=== PATIENT | female | born 1955 | race Caucasian/White ===

== ENCOUNTER → 2016-11-02 | Outpatient (CLI) | payer OTHER ==
--- NOTE | 2016-11-02 15:39 | BD ---
EXAMINATION TYPE: MG DEXA axial skeleton. DATE OF EXAM: 11/02/2016 2:09 PM CLINICAL HISTORY: Height: 62 inches Weight: 104 FRAX RISK QUESTIONS: Alcohol (3 or more units per day): no Family History (Parent hip fracture): unsure Glucocorticoids (More than 3mos): albuterol inhaler as needed over about 2 years (Ex: prednisone, prednisolone, methylprednisolone, dexamethasone, and hydrocortisone). History of Fracture in Adulthood: yes Secondary Osteoporosis: 1. Type 1 Diabetes: no 2. Hyperthyroidism: no 3. Menopause before 45: yes 4. Malnutrition: unsure; 5 pound weight loss over several months 5. Chronic liver disease: no Rheumatoid Arthritis: no Current Tobacco Use: yes RISK FACTORS HISTORY OF: History of Fractures: yes, both ankles( right ankle twice) & tailbone When: first broke right ankle about age 36, broke left about 4-5 years later (about age 41), second t jonathon broke right ankle( about age 49-50); tail bone fracture about 3-4 years ago (about age 54-55) Family History of Osteoporosis: unsure Drink Alcohol: very very rarely Active: yes Diet low in dairy products/other sources of calcium: somewhat Postmenopausal woman: yes Take estrogen and/or progesterone medications: no Lost more than 2 inches in height since high school: no Frequent falls: no Poor Health: "sometimes" Hyperparathyroidism: no Adrenal Insufficiency: no MEDICATIONS: Prednisone or other steroids: albuterol inhaler as needed as needed How Long: about 2 years Thyroid Medications: no Osteoporosis Medications: no Additional Medications: Vitamin D, Claritin, "stomach" pill Additional History: hysterectomy age 40 EXAM MEASUREMENTS: Bone mineral densitometry was performed using the [employer]val[employer] System. Bone mineral density as measured about the Lumbar spine is: ----- L1-L4(G/cm2): 0.610 T Score Values are as follows: ----- L2: -5.1 ----- L3: -4.6 ----- L4: -4.8 ----- L1-L4: -4.7 Bone mineral density BASELINE Bone mineral density about the R hip (g/cm2): 0.555 Bone mineral density about the L hip (g/cm2): 0.535 T Score values are as follows: -----R Neck: -3.5 -----L Neck: -3.6 -----R Intertrochanter: -4.1 -----L Intertrochanter: -4.1 Bone mineral density BASELINE IMPRESSION: Osteoporosis (T Score less than -2.5) as noted by T Score values at the Lumbar Spine & Bilateral Hi ps There is increased fracture risk and therapy is usually indicated based on age. Re-Screen 1-2 years. NOTE: T-SCORE=SD OF THE YOUNG ADULT MEAN.
== END | disposition home or self-care (01) ==
LOC: RADBDWWP 13:12
PROVIDERS: ATTEND Family Medicine
DX: M81.8 Other osteoporosis without current pathological fracture (principal)
CPT/HCPCS: 77080

== ENCOUNTER 2016-11-03 00:27 | Emergency (ER) | payer OTHER ==
[2016-11-03] MEDS ORDERED: ORPHENADRINE 30 MG/ML 2 ML VIAL IM STA (01:33)
[2016-11-03] MEDS ORDERED: KETOROLAC 30 MG/ML 1 ML VIAL IM STA (01:33)
--- NOTE | 2016-11-03 02:23 | ED ---
Back Pain HPI - General Chief Complaint: Back Pain/Injury Stated Complaint: Back/Flank Pain Time Seen by Provider: 11/03/16 01:14 Source: patient, RN notes reviewed, old records reviewed Limitations: no limitations - History of Present Illness Initial Comments: Patient is a 60 year old female with chief complaint of back muscle spasm. She states that she was cleaning her floors and noticed the pain became severe today. Pain worse with position, no history of trauma or fracture or surgery. She states she has taken motrin with no relief, patient states she has used flexeril before. Patient denies any dysuria, hematuria, saddle anesthesias or incontinence. Patient states the pain is mid thoracic back, radiatig to right side. - Related Data Home Medications Medication Instructions Recorded Confirmed Albuterol Inhaler [Ventolin Hfa 1 - 2 puff INHALATION RT-Q6H PRN 01/28/16 Inhaler] Ergocalciferol (Vitamin D2) 50,000 unit PO Q30D 03/16/16 07/21/16 [Drisdol] Triamcinolone 0.1% Cream [Kenalog] 1 applicatio TOPICAL QID PRN 03/16/16 Cetirizine HCl [Zyrtec] 10 mg PO DAILY PRN 06/09/16 07/21/16 Ketorolac [Toradol] 10 mg PO Q6HR PRN 07/21/16 07/21/16 Previous Rx's Medication Instructions Recorded Cyclobenzaprine [Flexeril] 10 mg PO TID PRN #10 tablet 06/04/16 Cyclobenzaprine [Flexeril] 10 mg PO TID #15 tab 11/03/16 traMADol HCl [Ultram] 50 mg PO Q4H PRN #12 tab 11/03/16 Allergies Allergy/AdvReac Type Severity Reaction Status Date / Time dimenhydrinate Allergy Rash/Hives Verified 11/03/16 00:36 [From Dramamine] latex Allergy Rash/Hives Verified 11/03/16 00:36 Penicillins Allergy Rash/Hives Verified 11/03/16 00:36 erythromycin base AdvReac HEADACHE Verified 11/03/16 00:36 [Erythromycin Base] ibuprofen [From Motrin] AdvReac Nausea & Verified 11/03/16 00:36 Vomiting SEAFOOD AdvReac Nausea & Uncoded 11/03/16 00:36 Vomiting & Diarrhea LORI AdvReac Nausea & Uncoded 11/03/16 00:36 Vomiting & Diarrhea Review of Systems ROS Statement: Those systems with pertinent positive or pertinent negative responses have been documented in the HPI. ROS Other: All systems not noted in ROS Statement are negative. Past Medical History Past Medical History: COPD, Hyperlipidemia, Osteoarthritis (OA) Additional Past Medical History / Comment(s): back pain, DDD History of Any Multi-Drug Resistant Organisms: None Reported Past Surgical History: Hernia Repair, Hysterectomy, Orthopedic Surgery Additional Past Surgical History / Comment(s): Rt. arthroscopic knee surgery Past Anesthesia/Blood Transfusion Reactions: No Reported Reaction Past Psychological History: Anxiety Smoking Status: Current every day smoker Past Alcohol Use History: None Reported Past Drug Use History: None Reported - Past Family History Mother Family Medical History: Myocardial Infarction ([place]) Father Family Medical History: Liver Disease, Pneumonia Sister(s) Family Medical History: Coronary Artery Disease (CAD), Diabetes Mellitus, Deep Vein Thrombosis (DVT), Hyperlipidemia, Hypertension General Exam - General Exam Comments Initial Comments: Pleasant 60 year old female no distress. Limitations: no limitations General appearance: alert, in no apparent distress Head exam: Present: atraumatic, normocephalic, normal inspection Eye exam: Present: normal appearance, PERRL, EOMI. Absent: scleral icterus, conjunctival injection, periorbital swelling ENT exam: Present: normal exam, mucous membranes moist Neck exam: Present: normal inspection. Absent: tenderness, meningismus, lymphadenopathy Respiratory exam: Present: normal lung sounds bilaterally. Absent: respiratory distress, wheezes, rales, rhonchi, stridor Cardiovascular Exam: Present: regular rate, normal rhythm, normal heart sounds. Absent: systolic murmur, diastolic murmur, rubs, gallop, clicks GI/Abdominal exam: Present: soft, normal bowel sounds. Absent: distended, tenderness, guarding, rebound, rigid Extremities exam: Present: normal inspection, full ROM, normal capillary refill. Absent: tenderness, pedal edema, joint swelling, calf tenderness Back exam: Present: normal inspection, muscle spasm (right thoracic muscle spasm. ). Absent: full ROM (limited due to pain. ) Neurological exam: Present: alert, oriented X3, CN II-XII intact Psychiatric exam: Present: normal affect, normal mood Skin exam: Present: warm, dry, intact, normal color. Absent: rash Course Vital Signs 11/03/16 11/03/16 00:34 03:00 Temperature 97.6 F 97.2 F L Pulse Rate 60 65 Respiratory 20 18 Rate Blood Pressure 101/57 113/80 O2 Sat by Pulse 99 97 Oximetry Medical Decision Making - Medical Decision Making Patient is a 60 year old female with chief complaint of back muscle spasm. She states that she was cleaning her floors and noticed the pain became severe today. Pain worse with position, no history of trauma or fracture or surgery. She states she has taken motrin with no relief, patient states she has used flexeril before. Patient denies any dysuria, hematuria, saddle anesthesias or incontinence. Patient states the pain is mid thoracic back, radiatig to right side. Evidence of right thoracic muscle spasm. Patient given IM toradol and norflex. Discharged with flexeril and ultram. Patient discussed xray findings of osteopenia. No fracture. Patient will follow up with PCP. REturn parameters discussed. - Radiology Data Radiology results: report reviewed Osteopenia, no fracture. Disposition Clinical Impression: Muscle spasm Disposition: HOME SELF-CARE Condition: Good Instructions: Acute Low Back Pain (ED), Muscle Spasm (ED) Additional Instructions: Rest, complete prescriptions. Apply heat and ice over the back. Follow-up with primary care provider. Prescriptions: Cyclobenzaprine [Flexeril] 10 mg PO TID #15 tab traMADol HCl [Ultram] 50 mg PO Q4H PRN #12 tab PRN Reason: Pain Referrals: Vahid Carr MD [Primary Care Provider] - 1-2 days Time of Disposition: 02:21
[2016-11-03] MEDS ORDERED: ONDANSETRON 4 MG ODT STARTER PACK 2 TAB BTL PO STA (02:30)
--- NOTE | 2016-11-03 02:41 | XR ---
EXAM: XR Thoracic Spine, 3 Views. CLINICAL HISTORY: Reason: Pain TECHNIQUE: Frontal, lateral and swimmer's views of the thoracic spine. COMPARISON: Chest x-ray 06/09/2016. FINDINGS: Vertebrae: No acute fracture or dislocation. Osteopenia. Disc spaces: Mild degenerative changes. Soft tissues: Unremarkable. Other findings: Minimal atelectatic changes. IMPRESSION: 1. No acute fracture or dislocation. 2. Osteopenia. 3. Mild degenerative changes.
[2016-11-03 03:01] VITALS: BP 113/80; PULSE 65; RESP 18; TEMP 97.2
== END 2016-11-03 03:01 | disposition home or self-care (01) ==
LOC: EC 00:27
DX: M62.830 Muscle spasm of back (principal); M85.80 Other specified disorders of bone density and structure, unspecified site; F17.200 Nicotine dependence, unspecified, uncomplicated; Z88.0 Allergy status to penicillin; Z91.040 Latex allergy status
CPT/HCPCS: 72070; 99283; 96372; J1885; S0119

== ENCOUNTER 2017-01-17 22:24 | Emergency (ER) | payer OTHER ==
[2017-01-17 22:49] VITALS: RESP 18
[2017-01-17] MEDS ORDERED: KETOROLAC 60 MG/2 ML VIAL IM STA (23:09)
--- NOTE | 2017-01-17 23:28 | ED ---
Lower Extremity Injury HPI - General Chief Complaint: Extremity Injury, Lower Stated Complaint: foot & shoulder pain Time Seen by Provider: 01/17/17 22:57 Source: patient, RN notes reviewed Mode of arrival: ambulatory Limitations: no limitations - History of Present Illness Initial Comments: This is a pleasant 61-year-old female presents emergency department complaining of pain to her left ankle. Patient states that she was carrying a daybed out onto a porch when her dog got tangled up with her leg. She states that she then stepped down and twisted her left foot. She is complaining of pain to the lateral aspect of the foot as well as the dorsum of the foot. She also has pain to the medial ankle. Patient is able to ambulate with antalgia and pain. Patient states that rest does alleviate the pain. She denies any numbness or tingling. No proximal pain. Patient denies any head or neck injury. Patient is complaining of some pain in the right scapular area. Patient states that she believes she twisted her grabbed something to stop falling and may have strained her right shoulder. However she does retain full range of motion to the right arm. Patient denies any chest pain or shortness of breath. No fever or chills. No head injury. No abdominal pain. No other orthopedic complaints. - Related Data Home Medications Medication Instructions Recorded Confirmed Albuterol Inhaler [Ventolin Hfa 1 - 2 puff INHALATION RT-Q6H PRN 01/28/16 Inhaler] Ergocalciferol (Vitamin D2) 50,000 unit PO Q30D 03/16/16 01/17/17 [Drisdol] Cetirizine HCl [Zyrtec] 10 mg PO DAILY PRN 06/09/16 01/17/17 Calcium Carbonate [Calcium] 600 mg PO BID 01/17/17 01/17/17 Cyclobenzaprine [Flexeril] 10 mg PO DAILY 01/17/17 01/17/17 Allergies Allergy/AdvReac Type Severity Reaction Status Date / Time dimenhydrinate Allergy Rash/Hives Verified 01/17/17 23:25 [From Dramamine] latex Allergy Rash/Hives Verified 01/17/17 23:25 Penicillins Allergy Rash/Hives Verified 01/17/17 23:25 shellfish derived [Shellfish] Allergy Anaphylaxis Verified 01/17/17 23:25 erythromycin base AdvReac Nausea & Verified 01/17/17 23:25 [Erythromycin Base] Vomiting ibuprofen [From Motrin] AdvReac Nausea & Verified 01/17/17 23:25 Vomiting ZUCCHINI AdvReac Nausea & Uncoded 01/17/17 22:47 Vomiting & Diarrhea Review of Systems ROS Statement: Those systems with pertinent positive or pertinent negative responses have been documented in the HPI. ROS Other: All systems not noted in ROS Statement are negative. Past Medical History Past Medical History: COPD, Hyperlipidemia, Osteoarthritis (OA) Additional Past Medical History / Comment(s): back pain, DDD History of Any Multi-Drug Resistant Organisms: None Reported Past Surgical History: Hernia Repair, Hysterectomy, Orthopedic Surgery Additional Past Surgical History / Comment(s): Rt. arthroscopic knee surgery Past Anesthesia/Blood Transfusion Reactions: No Reported Reaction Past Psychological History: Anxiety Smoking Status: Current every day smoker Past Alcohol Use History: None Reported Past Drug Use History: None Reported - Past Family History Mother Family Medical History: Myocardial Infarction ([place]) Father Family Medical History: Liver Disease, Pneumonia Sister(s) Family Medical History: Coronary Artery Disease (CAD), Diabetes Mellitus, Deep Vein Thrombosis (DVT), Hyperlipidemia, Hypertension General Exam - General Exam Comments Initial Comments: Thin but pearing 61-year-old female in no distress Limitations: no limitations General appearance: alert, in no apparent distress Head exam: Present: atraumatic, normocephalic, normal inspection Eye exam: Present: normal appearance, EOMI. Absent: scleral icterus, conjunctival injection, periorbital swelling ENT exam: Present: normal exam, normal oropharynx, mucous membranes moist Neck exam: Present: normal inspection, full ROM. Absent: tenderness, meningismus, lymphadenopathy Respiratory exam: Present: normal lung sounds bilaterally. Absent: respiratory distress, wheezes, rales, rhonchi, stridor Cardiovascular Exam: Present: regular rate, normal rhythm, normal heart sounds. Absent: systolic murmur, diastolic murmur, rubs, gallop, clicks GI/Abdominal exam: Present: soft, normal bowel sounds. Absent: distended, tenderness, guarding, rebound, rigid Extremities exam: Present: normal inspection, full ROM, normal capillary refill. Absent: tenderness, pedal edema, joint swelling, calf tenderness Left Knee exam: Present: normal inspection, full ROM. Absent: tenderness Lower Leg exam: Present: normal inspection. Absent: tenderness Ankle exam: Present: normal inspection, full ROM, tenderness. Absent: swelling , abrasion, laceration Foot/Toe exam: Present: normal inspection, full ROM, tenderness. Absent: swelling, abrasion (Patient has tenderness to the dorsum of the left foot as well as the area of the medial malleolus. There is mild tenderness to the area of the proximal fifth metatarsal. Capillary refill less than 2 seconds.) Neurovascular tendon exam: Present: no vascular compromise. Absent: pulse deficit, abnormal cap refill, motor deficit, sensory deficit, tendon deficit, extremity cold to touch, pallor Gait: antalgic Back exam: Present: normal inspection Neurological exam: Present: alert, oriented X3, CN II-XII intact Psychiatric exam: Present: normal affect, normal mood Skin exam: Present: warm, dry, intact, normal color. Absent: rash Course Vital Signs 01/17/17 22:44 Temperature 97.4 F L Pulse Rate 66 Respiratory 18 Rate Blood Pressure 105/64 O2 Sat by Pulse 98 Oximetry Medical Decision Making - Medical Decision Making Patient has a soft tissue injury to the right scapular region. This is likely muscle strain involving the upper back. Patient appears to have a sprain of the left foot and left deltoid ligament. Patient be placed in an Gaetano wrap. Patient will need to follow-up with her pain management physician at home for any further pain control. Conservative measures will be discussed. Return parameters discussed. - Radiology Data Radiology results: report reviewed, image reviewed Plain film x-rays of the right scapula, chest, left ankle and left foot are read as negative by radiology. I reviewed all the films myself. I concur. Disposition Clinical Impression: Muscle strain of right upper back, Sprain of foot, left, Left ankle sprain Disposition: HOME SELF-CARE Condition: Good Instructions: Ankle Sprain (ED), Thoracic Back Strain (ED) Additional Instructions: Use [id number] acetaminophen as directed on the bottle for pain control. Follow-up with your pain management physician tomorrow for any further pain control. Apply ice 20 minutes on and off to the affected areas.Return to the ER at once if the symptoms worsen or problems or difficulties arise. Referrals: Vahid Carr MD [Primary Care Provider] - 1-2 days Time of Disposition: 00:44
--- NOTE | 2017-01-18 00:17 | XR ---
EXAM: XR Right Shoulder Complete, 2 or More Views CLINICAL HISTORY: Pain TECHNIQUE: Two or more views of the right shoulder. COMPARISON: No relevant prior studies available. FINDINGS: Bones/joints: Unremarkable. No acute fracture. No dislocation. Soft tissues: Unremarkable. IMPRESSION: Normal right shoulder x-rays.
--- NOTE | 2017-01-18 00:18 | XR ---
EXAM: XR Left Ankle Complete, 3 or More Views CLINICAL HISTORY: Pain TECHNIQUE: Frontal, lateral and oblique views of the left ankle. COMPARISON: No relevant prior studies available. FINDINGS: Bones/joints: Unremarkable. No acute fracture. No dislocation. Soft tissues: Unremarkable. IMPRESSION: Normal left ankle x-rays.
--- NOTE | 2017-01-18 00:20 | XR ---
EXAM: XR Left Foot Complete, 3 or More Views CLINICAL HISTORY: Pain TECHNIQUE: Frontal, lateral and oblique views of the left foot. COMPARISON: No relevant prior studies available. FINDINGS: Bones/joints: Unremarkable. No acute fracture. No dislocation. Soft tissues: Unremarkable. No radiopaque foreign body. IMPRESSION: Normal left foot x-rays.
--- NOTE | 2017-01-18 00:48 | XR ---
EXAM: XR Chest, 1 View CLINICAL HISTORY: Reason: Pain TECHNIQUE: Frontal view of the chest. COMPARISON: Chest x-ray dated 06/02/2016 FINDINGS: Lungs: Hyperexpanded lungs suggesting COPD. Otherwise, the lungs are clear. Pleural space: Unremarkable. No pneumothorax. Heart: Mild prominence of the cardiomediastinal silhouette. Mediastinum: See above. Bones/joints: Unremarkable. IMPRESSION: Hyperexpanded lungs suggesting COPD. Otherwise, the lungs are clear.
[2017-01-18 01:12] VITALS: BP 111/67; PULSE 62; TEMP 98.1
== END 2017-01-18 01:22 | disposition home or self-care (01) ==
LOC: EC 22:24
DX: S93.402A Sprain of unspecified ligament of left ankle, initial encounter (principal); S93.602A Unspecified sprain of left foot, initial encounter; S46.911A Strain of unspecified muscle, fascia and tendon at shoulder and upper arm level, right arm, initial encounter; M19.90 Unspecified osteoarthritis, unspecified site; F17.200 Nicotine dependence, unspecified, uncomplicated; Z79.899 Other long term (current) drug therapy; Z91.040 Latex allergy status; Z88.0 Allergy status to penicillin; Z91.013 Allergy to seafood; Z88.1 Allergy status to other antibiotic agents; Z88.8 Allergy status to other drugs, medicaments and biological substances; Z88.6 Allergy status to analgesic agent; X50.1XXA Overexertion from prolonged static or awkward postures, initial encounter; Y93.89 Activity, other specified
CPT/HCPCS: 71010; 73010; 73610; 73630; 99283; 96372; J1885

== ENCOUNTER → 2017-05-13 | Outpatient (CLI) | payer OTHER ==
--- NOTE | 2017-05-13 17:28 | US ---
EXAMINATION TYPE: US kidneys/renal and bladder DATE OF EXAM: 05/13/2017 COMPARISON: NONE CLINICAL HISTORY: R31.9 hematuria. Pt states left flank pain, microscopic hematuria EXAM MEASUREMENTS: Right Kidney: 9.0 x 3.4 x 4.2 cm Left Kidney: 11.6 x 4.3 x 5.5 cm Right Kidney: wnl, lower pole gassed out Left Kidney: Hypoechoic nodule mid/lateral= 0.9 x 0.7 x 0.7 cm Bladder: wnl Bilateral Jets seen: Yes no evidence of hydronephrosis or nephrolithiasis. IMPRESSION: Hypoechoic nodule left kidney measuring less than a centimeter suggestive of a simple cyst.
== END | disposition home or self-care (01) ==
LOC: RADUSWWP 16:27
PROVIDERS: ATTEND Family Medicine
DX: N28.89 Other specified disorders of kidney and ureter (principal); R31.9 Hematuria, unspecified; Z88.0 Allergy status to penicillin; Z88.1 Allergy status to other antibiotic agents
CPT/HCPCS: 76770

== ENCOUNTER 2017-11-10 21:10 | Emergency (ER) | payer OTHER ==
[2017-11-10 21:18] VITALS: RESP 16
[2017-11-10] MEDS ORDERED: ONDANSETRON 4 MG/2 ML VIAL IVP STA (21:45)
[2017-11-10] MEDS ORDERED: DIPHENOX-ATROP 2.5-0.025 MG 1 EACH TAB PO STA (21:45)
[2017-11-10] MEDS ORDERED: SODIUM CHLORIDE 0.9% 1,000 ML IV STA (21:45)
[2017-11-10 22:15] LABS: Basophils % (A) 0 %; Eosinophils # (A) 0.1 k/uL (0-0.7); Eosinophils % (A) 2 %; HGB 14.5 gm/dL (11.4-16.0); Lymphocytes # (A) 0.9 k/uL (1.0-4.8); Lymphocytes % (A) 11 %; MCH 28.1 pg (25.0-35.0); MCHC 32.3 g/dL (31.0-37.0); MCV 87.1 fL (80.0-100.0); Mean Platelet Volume 8.1; Monocytes # (A) 0.3 k/uL (0-1.0); Monocytes % (A) 3 %; Neutrophils # (A) 6.5 k/uL (1.3-7.7); Neutrophils % (A) 83 %; Platelet Count 193 k/uL (150-450); RBC 5.16 m/uL (3.80-5.40); RDW 13.9 % (11.5-15.5); WBC 7.8 k/uL (3.8-10.6)
[2017-11-10 22:21] LABS: Appearance,Urine Cloudy (Clear); Bilirubin,Urine Negative (Negative); Blood,Urine Small (Negative); Color,Urine Yellow; Glucose,Urine (UA) Negative (Negative); Ketones,Urine 1+ (Negative); Leukocyte Esterase,Urine Negative (Negative); Mucus,Urine Moderate /hpf; Nitrite,Urine Negative (Negative); PH, Urine 5.5 (5.0-8.0); Protein,Urine Trace (Negative); RBC,Urine 6 /hpf (0-5); Specific Gravity,Urine 1.031 (1.001-1.035); Squamous Epithelial Cell,Urine 1 /hpf (0-4); WBC,Urine 2 /hpf (0-5)
[2017-11-10 22:22] LABS: Albumin 3.9 g/dL (3.5-5.0); Calcium 9.8 mg/dL (8.4-10.2); Potassium 4.1 mmol/L (3.5-5.1); Total Bilirubin 0.7 mg/dL (0.2-1.3); Total Protein 6.4 g/dL (6.3-8.2)
--- NOTE | 2017-11-10 22:55 | CT ---
EXAMINATION TYPE: CT abdomen pelvis wo con DATE OF EXAM: 11/10/2017 COMPARISON: NONE HISTORY: Left lower quadrant pain, nausea, vomiting and diarrhea. CT DLP: 211.5 mGycm Automated exposure control for dose reduction was used. TECHNIQUE: Helical acquisition of images was performed from the lung bases through the pelvis. FINDINGS: Lung bases are clear of consolidation. There is minimal subpleural reticular density consistent with mild fibrosis. There is no pleural effusion. There is no pericardial effusion. Bile ducts are not dilated. Spleen appears normal. There is no sign of a pancreatic mass. There are m ultiple densities in the gallbladder. There is probably a 1 cm cyst in the left lobe of the liver. Th ere is a similar smaller density in the right lobe of the liver. There is no evidence of an adrenal mass. Left kidney is slightly larger than the right. I see no hydr onephrosis. There is no retroperitoneal adenopathy. There is no sign of ascites. Appendix appears nor mal. Bladder distends smoothly. There is no evidence of a bowel obstruction. There are a few fluid-fi lled loops of small bowel in the pelvis. There are phleboliths in the pelvis. There is no sign of a h ernia. I see no pelvic mass. The lumbar spine is intact. I see no bony destructive process. IMPRESSION: MULTIPLE GALLSTONES. NO DILATED DUCTS. NO EVIDENCE OF RENAL STONE OR OBSTRUCTION. NORMAL APPENDIX. TH ERE ARE A FEW SMALL BOWEL FLUID-FILLED LOOPS IN THE PELVIS THAT MEASURE UP TO 2.5 CM. THIS COULD BE M INIMAL ILEUS. OTHERWISE NEGATIVE CT SCAN OF THE ABDOMEN AND PELVIS.
--- NOTE | 2017-11-10 23:08 | ED ---
Nausea/Vomiting/Diarrhea HPI - General Chief complaint: Nausea/Vomiting/Diarrhea Stated complaint: NVD Time Seen by Provider: 11/10/17 21:39 Source: patient, RN notes reviewed, old records reviewed Mode of arrival: ambulatory Limitations: no limitations - History of Present Illness Initial comments: 61-year-old female presents to complain of nausea vomiting diarrhea today. She reports the episode started at 4 AM. She states that she's her nausea subsided she's been no diarrhea. He plans left lower quadrant abdominal pain. Denies any dysuria or hematuria. - Related Data Home Medications Medication Instructions Recorded Confirmed Albuterol Inhaler [Ventolin Hfa 1 - 2 puff INHALATION RT-Q6H PRN 01/28/16 Inhaler] Ergocalciferol (Vitamin D2) 50,000 unit PO Q30D 03/16/16 11/10/17 [Drisdol] Calcium Carbonate [Calcium] 600 mg PO BID 01/17/17 11/10/17 Atorvastatin [Lipitor] 20 mg PO DAILY 11/10/17 11/10/17 Ketorolac [Toradol] 10 mg PO Q6H PRN 11/10/17 11/10/17 Loratadine [Claritin] 10 mg PO DAILY PRN 11/10/17 11/10/17 busPIRone HCl [Buspar] 5 mg PO TID PRN 11/10/17 11/10/17 Previous Rx's Medication Instructions Recorded Ondansetron Odt [Zofran Odt] 4 mg PO Q8HR PRN #12 tab 11/10/17 Allergies Allergy/AdvReac Type Severity Reaction Status Date / Time dimenhydrinate Allergy Rash/Hives Verified 11/10/17 21:18 [From Dramamine] latex Allergy Rash/Hives Verified 11/10/17 21:18 Penicillins Allergy Rash/Hives Verified 11/10/17 21:18 shellfish derived [Shellfish] Allergy Anaphylaxis Verified 11/10/17 21:18 erythromycin base AdvReac Nausea & Verified 11/10/17 21:18 [Erythromycin Base] Vomiting ibuprofen [From Motrin] AdvReac Nausea & Verified 11/10/17 21:18 Vomiting ZUCCHINI AdvReac Nausea & Uncoded 11/10/17 21:18 Vomiting & Diarrhea Review of Systems ROS Statement: Those systems with pertinent positive or pertinent negative responses have been documented in the HPI. ROS Other: All systems not noted in ROS Statement are negative. Past Medical History Past Medical History: COPD, Hyperlipidemia, Osteoarthritis (OA) Additional Past Medical History / Comment(s): back pain, DDD History of Any Multi-Drug Resistant Organisms: None Reported Past Surgical History: Hernia Repair, Hysterectomy, Orthopedic Surgery Additional Past Surgical History / Comment(s): Rt. arthroscopic knee surgery Past Anesthesia/Blood Transfusion Reactions: No Reported Reaction Past Psychological History: No Psychological Hx Reported Smoking Status: Current every day smoker Past Alcohol Use History: None Reported Past Drug Use History: None Reported - Past Family History Mother Family Medical History: Myocardial Infarction ([place]) Father Family Medical History: Liver Disease, Pneumonia Sister(s) Family Medical History: Coronary Artery Disease (CAD), Diabetes Mellitus, Deep Vein Thrombosis (DVT), Hyperlipidemia, Hypertension General Exam - General Exam Comments Initial Comments: Well-appearing 7-year-old female. No distress. Limitations: no limitations General appearance: alert, in no apparent distress Head exam: Present: atraumatic, normocephalic, normal inspection Eye exam: Present: normal appearance, PERRL, EOMI. Absent: scleral icterus, conjunctival injection, periorbital swelling ENT exam: Present: normal exam, mucous membranes moist Neck exam: Present: normal inspection. Absent: tenderness, meningismus, lymphadenopathy Respiratory exam: Present: normal lung sounds bilaterally. Absent: respiratory distress, wheezes, rales, rhonchi, stridor Cardiovascular Exam: Present: regular rate, normal rhythm, normal heart sounds. Absent: systolic murmur, diastolic murmur, rubs, gallop, clicks GI/Abdominal exam: Present: soft, tenderness (Minimal suprapubic and LLQ tenderness. ), normal bowel sounds. Absent: distended, guarding, rebound, rigid Extremities exam: Present: normal inspection, full ROM, normal capillary refill. Absent: tenderness, pedal edema, joint swelling, calf tenderness Back exam: Present: normal inspection Neurological exam: Present: alert, oriented X3, CN II-XII intact Psychiatric exam: Present: normal affect, normal mood Skin exam: Present: warm, dry, intact, normal color. Absent: rash Course Vital Signs 11/10/17 11/10/17 21:16 23:39 Temperature 97.3 F L 97.8 F Pulse Rate 83 81 Respiratory 16 16 Rate Blood Pressure 102/63 115/78 O2 Sat by Pulse 98 98 Oximetry Medical Decision Making - Medical Decision Making 61-year-old female presents with 1 day of diarrhea and vomiting. She also relates some left lower quadrant abdominal pain. Patient labwork was reviewed and normal. CT of the pelvis was performed without contrast. Multiple gallstones. Her liver enzymes are normal. Normal white count. No signs of diverticulitis.Patient's labwork was reviewed and was normal. Urine does show some small amount of red blood cells. CT shows no evidence of renal stones. Disucssed at this time treating for diarrhea and nausea, for gastroenteritis. Discussed follow up with PCP and return parameters discussed. Discussed also following up for persistent hematuria with PCP. All questions answered. Patient agrees to treatment plan and will comply. - Lab Data Result diagrams: 11/10/17 21:55 11/10/17 21:55 Lab Results 11/10/17 11/10/17 11/10/17 Range/Units 21:55 21:55 21:55 WBC 7.8 (3.8-10.6) k/uL RBC 5.16 (3.80-5.40) m/uL Hgb 14.5 (11.4-16.0) gm/dL Hct 45.0 (34.0-46.0) % MCV 87.1 (80.0-100.0) fL MCH 28.1 (25.0-35.0) pg MCHC 32.3 (31.0-37.0) g/dL RDW 13.9 (11.5-15.5) % Plt Count 193 (150-450) k/uL Neutrophils % 83 % Lymphocytes % 11 % Monocytes % 3 % Eosinophils % 2 % Basophils % 0 % Neutrophils # 6.5 (1.3-7.7) k/uL Lymphocytes # 0.9 L (1.0-4.8) k/uL Monocytes # 0.3 (0-1.0) k/uL Eosinophils # 0.1 (0-0.7) k/uL Basophils # 0.0 (0-0.2) k/uL Sodium 137 (137-145) mmol/L Potassium 4.1 (3.5-5.1) mmol/L Chloride 103 (98-107) mmol/L Carbon Dioxide 23 (22-30) mmol/L Anion Gap 11 mmol/L BUN 20 H (7-17) mg/dL Creatinine 0.90 (0.52-1.04) mg/dL Est GFR (CKD-EPI)AfAm 81 (>60 ml/min/1.73 sqM) Est GFR (CKD-EPI)NonAf 70 (>60 ml/min/1.73 sqM) Glucose 93 (74-99) mg/dL Calcium 9.8 (8.4-10.2) mg/dL Total Bilirubin 0.7 (0.2-1.3) mg/dL AST 15 (14-36) U/L ALT 23 (9-52) U/L Alkaline Phosphatase 82 (38-126) U/L Total Protein 6.4 (6.3-8.2) g/dL Albumin 3.9 (3.5-5.0) g/dL Amylase 47 (30-110) U/L Lipase 130 (23-300) U/L Urine Color Yellow Urine Appearance Cloudy H (Clear) Urine pH 5.5 (5.0-8.0) Ur Specific [place] 1.031 (1.001-1.035) Urine Protein Trace H (Negative) Urine Glucose (UA) Negative (Negative) Urine Ketones 1+ H (Negative) Urine Blood Small H (Negative) Urine Nitrite Negative (Negative) Urine Bilirubin Negative (Negative) Urine Urobilinogen 2.0 (<2.0) mg/dL Ur Leukocyte Esterase Negative (Negative) Urine RBC 6 H (0-5) /hpf Urine WBC 2 (0-5) /hpf Ur Squamous Epith Cells 1 (0-4) /hpf Urine Mucus Moderate H (None) /hpf - Radiology Data Radiology results: report reviewed Multiple gallstones. No dilated ducts. No evidence of renal stone or obstruction. Normal appendix. There are few small bowel fluid-filled loops in the pelvis is measures 2.5 cm. Could be minimal ileus. Otherwise negative CT abdomen and pelvis. Disposition Clinical Impression: Nausea, Diarrhea Disposition: HOME SELF-CARE Condition: Good Instructions: Acute Nausea and Vomiting (ED), Acute Diarrhea (ED) Additional Instructions: Patient advised to follow-up with primary care provider. Clear liquid diet for the next 2 days. Return to emergency department if any alarming signs or symptoms occur. Prescriptions: Ondansetron Odt [Zofran Odt] 4 mg PO Q8HR PRN #12 tab PRN Reason: Nausea Referrals: Vahid Carr MD [Primary Care Provider] - 1-2 days Time of Disposition: 23:08
[2017-11-10] MEDS ORDERED: DIPHENOX-ATROP STARTER PACK 8 TAB BTL PO STA (23:09)
[2017-11-10 23:40] VITALS: BP 115/78; PULSE 81; TEMP 97.8
== END 2017-11-10 23:39 | disposition home or self-care (01) ==
LOC: EC 21:10
DX: R11.2 Nausea with vomiting, unspecified (principal); R19.7 Diarrhea, unspecified; R10.32 Left lower quadrant pain; E78.5 Hyperlipidemia, unspecified; F17.200 Nicotine dependence, unspecified, uncomplicated; Z90.710 Acquired absence of both cervix and uterus; Z79.899 Other long term (current) drug therapy; Z88.8 Allergy status to other drugs, medicaments and biological substances; Z91.040 Latex allergy status; Z88.0 Allergy status to penicillin; Z91.030 Bee allergy status; Z88.1 Allergy status to other antibiotic agents; Z88.6 Allergy status to analgesic agent; Z91.018 Allergy to other foods
CPT/HCPCS: 36415; 80053; 82150; 83690; 85025; 81001; 74176; 99284; 96374; 96361; J2405

== ENCOUNTER → 2018-05-02 | Outpatient (CLI) | payer OTHER ==
--- NOTE | 2018-05-02 10:52 | P.STRESS ---
- Stress Test Note Stress Test Results/Findings: Exam Performed: stress echo exercise Exam Date: 05/02/18 Reason for Exam: cp Height: 5 ft 3 in Weight: 47.627 kg Protocol: gene Stage: 3 Duration of Exercise: 9 min Resting Heart Rate: 65 Resting Blood Pressure: 111/78 Maximum Achieved Heart Rate: 151 Maximum Achieved Blood Pressure: 213/82 85% PMHR: 135 100% PMHR: 151 METS: 10.5 Technologist Comment: Stress Test Results/Findings: This is a 62-year-old female with history of smoking and hypercholesterolemia being evaluated for symptoms of chest pain, shortness of breath and palpitations. Stress data: Baseline EKG showed sinus rhythm with normal HI interval constipation. Blood pressure at rest is 111/78 with pulse rate of 65. Patient walked on the Gene protocol for about 9 minutes achieving a maximal heart rate of 151 with a blood pressure of 213/82. EKGs taken during and after exercise showed mild nonspecific ST-T abnormalities in inferolateral leads which are not diagnostic for ischemia. Occasional PVCs were noted. Echo data: Baseline echo images show normal wall motion and thickening. Exercise echo images showed augmentation of the wall motion and thickening in all segments. Final impression: #1. Negative stress test #2. Negative stress echo
--- NOTE | 2018-05-03 12:29 | ECHOS ---
Exam Performed: stress echo exercise Exam Date: 05/02/18 Reason for Exam: cp Height: 5 ft 3 in Weight: 47.627 kg Protocol: gene Stage: 3 Duration of Exercise: 9 min Resting Heart Rate: 65 Resting Blood Pressure: 111/78 Maximum Achieved Heart Rate: 151 Maximum Achieved Blood Pressure: 213/82 85% PMHR: 135 100% PMHR: 151 METS: 10.5 Technologist Comment: Stress Test Results/Findings: This is a 62-year-old female with history of smoking and hypercholesterolemia being evaluated for symptoms of chest pain, shortness of breath and palpitations. Stress data: Baseline EKG showed sinus rhythm with normal MA interval constipation. Blood pressure at rest is 111/78 with pulse rate of 65. Patient walked on the Gene protocol for about 9 minutes achieving a maximal heart rate of 151 with a blood pressure of 213/82. EKGs taken during and after exercise showed mild nonspecific ST-T abnormalities in inferolateral leads which are not diagnostic for ischemia. Occasional PVCs were noted. Echo data: Baseline echo images show normal wall motion and thickening. Exercise echo images showed augmentation of the wall motion and thickening in all segments. Final impression: #1. Negative stress test #2. Negative stress echo MTDD
== END | disposition home or self-care (01) ==
LOC: RADNMMAIN 09:20
PROVIDERS: ATTEND Family Medicine
DX: R07.9 Chest pain, unspecified (principal); Z88.0 Allergy status to penicillin; Z88.1 Allergy status to other antibiotic agents; Z88.8 Allergy status to other drugs, medicaments and biological substances
CPT/HCPCS: 93351

== ENCOUNTER 2019-03-27 01:16 | Emergency (ER) | payer OTHER ==
[2019-03-27 01:28] VITALS: BP 116/80; PULSE 63; RESP 18; TEMP 98
[2019-03-27] MEDS ORDERED: ACETAMINOPHEN TAB 500 MG TAB PO STA (02:02)
--- NOTE | 2019-03-27 03:15 | US ---
EXAM: US Duplex Left Lower Extremity Veins CLINICAL HISTORY: ITS.REASON US Reason: Pain TECHNIQUE: Real-time duplex ultrasound scan of the left lower extremity veins integrating B-mode two-dimensional vascular structure, Doppler spectral analysis, color flow Doppler imaging and compression. COMPARISON: No relevant prior studies available. FINDINGS: Deep veins: No DVT in the visualized common femoral, femoral, proximal deep femoral or popliteal veins. The veins demonstrate normal color flow, are normally compressible, with normal phasic flow and/or augmentation response. Superficial veins: No thrombus in the visualized great saphenous vein. Soft tissues: No popliteal cyst. IMPRESSION: No DVT.
--- NOTE | 2019-03-27 03:23 | ED ---
General Adult HPI - General Chief complaint: Extremity Injury, Lower Stated complaint: L Leg Pain Time Seen by Provider: 03/27/19 01:31 Source: patient Mode of arrival: wheelchair Limitations: no limitations - History of Present Illness Initial comments: 63-year-old female patient presented to the emergency department today for evaluation of left calf pain. Patient states the pain started today after she left her legs crossed for a long period. Patient states that she took Tylenol which did improve her pain for a short time but it did return. She denies any swelling to the leg. Denies any previous injury to the leg. She denies any recent travel or use of oral hormonal medications. Patient denies any headache, neck pain, back pain, chest pain, shortness of breath, dizziness, weakness, abdominal pain, nausea, vomiting, or difficulties with bowel movements or urination. - Related Data Home Medications Medication Instructions Recorded Confirmed Albuterol Inhaler [Ventolin Hfa 1 - 2 puff INHALATION RT-Q6H PRN 01/28/16 11/10/17 Inhaler] Ergocalciferol (Vitamin D2) 50,000 unit PO Q30D 03/16/16 11/10/17 [Drisdol] Calcium Carbonate [Calcium] 600 mg PO BID 01/17/17 11/10/17 Atorvastatin [Lipitor] 20 mg PO DAILY 11/10/17 11/10/17 Ketorolac [Toradol] 10 mg PO Q6H PRN 11/10/17 11/10/17 Loratadine [Claritin] 10 mg PO DAILY PRN 11/10/17 11/10/17 busPIRone HCl [Buspar] 5 mg PO TID PRN 11/10/17 11/10/17 Previous Rx's Medication Instructions Recorded Ondansetron Odt [Zofran Odt] 4 mg PO Q8HR PRN #12 tab 11/10/17 Allergies Allergy/AdvReac Type Severity Reaction Status Date / Time dimenhydrinate Allergy Rash/Hives Verified 03/27/19 01:28 [From Dramamine] latex Allergy Rash/Hives Verified 03/27/19 01:28 Penicillins Allergy Rash/Hives Verified 03/27/19 01:28 shellfish derived [Shellfish] Allergy Anaphylaxis Verified 03/27/19 01:28 erythromycin base AdvReac Nausea & Verified 03/27/19 01:28 [Erythromycin Base] Vomiting ibuprofen [From Motrin] AdvReac Nausea & Verified 03/27/19 01:28 Vomiting ZUCCHINI AdvReac Nausea & Uncoded 03/27/19 01:28 Vomiting & Diarrhea Review of Systems ROS Statement: Those systems with pertinent positive or pertinent negative responses have been documented in the HPI. ROS Other: All systems not noted in ROS Statement are negative. Past Medical History Past Medical History: COPD, Hyperlipidemia, Osteoarthritis (OA) Additional Past Medical History / Comment(s): back pain, DDD History of Any Multi-Drug Resistant Organisms: None Reported Past Surgical History: Hernia Repair, Hysterectomy, Orthopedic Surgery Additional Past Surgical History / Comment(s): Rt. arthroscopic knee surgery, Past Anesthesia/Blood Transfusion Reactions: No Reported Reaction Past Psychological History: No Psychological Hx Reported Smoking Status: Current every day smoker Past Alcohol Use History: None Reported Past Drug Use History: None Reported - Past Family History Mother Family Medical History: Myocardial Infarction ([place]) Father Family Medical History: Liver Disease, Pneumonia Sister(s) Family Medical History: Coronary Artery Disease (CAD), Diabetes Mellitus, Deep Vein Thrombosis (DVT), Hyperlipidemia, Hypertension General Exam Limitations: no limitations General appearance: alert, in no apparent distress, other (Physical well- developed, well-nourished adult female patient in no acute distress. Vital signs upon presentation shows temperature 98.0F, pulse 63, respirations 18, respirations 18, blood pressure 116/80, pulse ox 98% on room air.) Eye exam: Present: normal appearance, PERRL, EOMI. Absent: scleral icterus, conjunctival injection, periorbital swelling ENT exam: Present: normal exam, normal oropharynx, mucous membranes moist Respiratory exam: Present: normal lung sounds bilaterally. Absent: respiratory distress, wheezes, rales, rhonchi, stridor Cardiovascular Exam: Present: regular rate, normal rhythm, normal heart sounds. Absent: systolic murmur, diastolic murmur, rubs, gallop, clicks GI/Abdominal exam: Present: soft, normal bowel sounds. Absent: distended, tenderness, guarding, rebound, rigid Extremities exam: Present: normal inspection, full ROM, normal capillary refill, calf tenderness (Left calf), other (Skin to the left leg is pink, warm, dry. Cap refills less than 3 seconds. Pedal and posttibial pulses are 2+ and equal bilaterally. No swelling.). Absent: pedal edema, joint swelling Neurological exam: Present: alert, oriented X3, CN II-XII intact Psychiatric exam: Present: normal affect, normal mood Skin exam: Present: warm, dry, intact, normal color. Absent: rash Course Vital Signs 03/27/19 01:25 Temperature 98.0 F Pulse Rate 63 Respiratory 18 Rate Blood Pressure 116/80 O2 Sat by Pulse 98 Oximetry Medical Decision Making - Medical Decision Making 63-year-old female patient presented to the emergency department today for evaluation of left calf pain. Physical examination is unremarkable. There is some tenderness noted to the left calf. No swelling. Neurovascular status is intact. Venous Doppler duplex of the left lower extremity was obtained and showed no evidence for DVT. Patient be discharged home with this and follow up with her primary care physician for recheck in 1-2 days. Return parameters were discussed in detail. She verbalizes understanding and agrees with this plan - Radiology Data Radiology results: report reviewed Venous upper duplex of the left lower extremities was obtained. No evidence for DVT. Disposition Clinical Impression: Left leg pain Disposition: HOME SELF-CARE Condition: Good Instructions (If sedation given, give patient instructions): Leg Pain (ED) Additional Instructions: Take Tylenol for pain control. Apply ice to the painful area. Follow-up with your primary care physician for recheck in 1-2 days. Return to the emergency department immediately for any new, worsening, or concerning symptoms. Is patient prescribed a controlled substance at d/c from ED?: No Referrals: Vahid Carr MD [Primary Care Provider] - 1-2 days Time of Disposition: 03:22
== END 2019-03-27 03:36 | disposition home or self-care (01) ==
LOC: EC 01:16
DX: M79.605 Pain in left leg (principal); M79.662 Pain in left lower leg; J44.9 Chronic obstructive pulmonary disease, unspecified; E78.5 Hyperlipidemia, unspecified; M19.90 Unspecified osteoarthritis, unspecified site; F17.200 Nicotine dependence, unspecified, uncomplicated; Z88.0 Allergy status to penicillin; Z88.1 Allergy status to other antibiotic agents; Z88.6 Allergy status to analgesic agent; Z88.8 Allergy status to other drugs, medicaments and biological substances; Z91.013 Allergy to seafood; Z91.018 Allergy to other foods; Z91.040 Latex allergy status; Z79.1 Long term (current) use of non-steroidal anti-inflammatories (NSAID); Z79.899 Other long term (current) drug therapy
CPT/HCPCS: 99284

== ENCOUNTER 2019-08-25 01:25 | Emergency (ER) | payer OTHER ==
[2019-08-25] MEDS ORDERED: KETOROLAC 60 MG/2 ML VIAL IM STA (01:49)
--- NOTE | 2019-08-25 01:52 | ED ---
Chest Pain HPI - General Chief Complaint: Chest Pain Stated Complaint: Rib pain Time Seen by Provider: 08/25/19 01:38 Source: patient Mode of arrival: ambulatory Limitations: no limitations - History of Present Illness Initial Comments: This is a 63-year-old female here with right-sided chest pain right-sided chest and rib pain. Patient admits to hearing a pop while reaching over and help her kids with some stuff on the floor. Them began to have right-sided pain in her rib cage underneath her breast radiating around her right side of her chest. No shortness of breath. No recent fever or cough or congestion. Symptoms began acutely tonight no modifying factors no Motrin or Tylenol for pain. MD Complaint: chest pain (Right-sided rib pain) -: hour(s) Onset: other (After moving, felt a pop) Pain Location: right chest Pain Radiation: back Severity: moderate Severity scale (1-10): 4 Quality: sharp Consistency: intermittent Improves With: nothing Worsens With: inspiration, palpation, movement Context: trauma/injury Other Symptoms: cough (History of COPD) Treatments Prior to Arrival: none - Related Data Home Medications Medication Instructions Recorded Confirmed Albuterol Inhaler [Ventolin Hfa 1 - 2 puff INHALATION RT-Q6H PRN 01/28/16 11/10/17 Inhaler] Ergocalciferol (Vitamin D2) 50,000 unit PO Q30D 03/16/16 11/10/17 [Drisdol] Calcium Carbonate [Calcium] 600 mg PO BID 01/17/17 11/10/17 Atorvastatin [Lipitor] 20 mg PO DAILY 11/10/17 11/10/17 Ketorolac [Toradol] 10 mg PO Q6H PRN 11/10/17 11/10/17 Loratadine [Claritin] 10 mg PO DAILY PRN 11/10/17 11/10/17 busPIRone HCl [Buspar] 5 mg PO TID PRN 11/10/17 11/10/17 Previous Rx's Medication Instructions Recorded Ondansetron Odt [Zofran Odt] 4 mg PO Q8HR PRN #12 tab 11/10/17 Allergies Allergy/AdvReac Type Severity Reaction Status Date / Time dimenhydrinate Allergy Rash/Hives Verified 08/25/19 01:36 [From Dramamine] latex Allergy Rash/Hives Verified 08/25/19 01:36 Penicillins Allergy Rash/Hives Verified 08/25/19 01:36 shellfish derived [Shellfish] Allergy Anaphylaxis Verified 08/25/19 01:36 erythromycin base AdvReac Nausea & Verified 08/25/19 01:36 [Erythromycin Base] Vomiting ibuprofen [From Motrin] AdvReac Nausea & Verified 08/25/19 01:36 Vomiting ZUCCHINI AdvReac Nausea & Uncoded 08/25/19 01:36 Vomiting & Diarrhea Review of Systems ROS Statement: Those systems with pertinent positive or pertinent negative responses have been documented in the HPI. ROS Other: All systems not noted in ROS Statement are negative. Past Medical History Past Medical History: COPD, Hyperlipidemia, Osteoarthritis (OA) Additional Past Medical History / Comment(s): back pain, DDD History of Any Multi-Drug Resistant Organisms: None Reported Past Surgical History: Hernia Repair, Hysterectomy, Orthopedic Surgery Additional Past Surgical History / Comment(s): Rt. arthroscopic knee surgery, Past Anesthesia/Blood Transfusion Reactions: No Reported Reaction Past Psychological History: No Psychological Hx Reported Smoking Status: Current every day smoker Past Alcohol Use History: None Reported Past Drug Use History: None Reported - Past Family History Mother Family Medical History: Myocardial Infarction ([place]) Father Family Medical History: Liver Disease, Pneumonia Sister(s) Family Medical History: Coronary Artery Disease (CAD), Diabetes Mellitus, Deep Vein Thrombosis (DVT), Hyperlipidemia, Hypertension General Exam Limitations: no limitations General appearance: alert, in no apparent distress Head exam: Present: atraumatic, normocephalic, normal inspection Eye exam: Present: normal appearance, PERRL, EOMI. Absent: scleral icterus, conjunctival injection, periorbital swelling ENT exam: Present: normal exam, mucous membranes moist Neck exam: Present: normal inspection. Absent: tenderness, meningismus, lymphadenopathy Respiratory exam: Present: normal lung sounds bilaterally, other (Right-sided chest wall pain). Absent: respiratory distress, wheezes, rales, rhonchi, stridor Cardiovascular Exam: Present: regular rate, normal rhythm, normal heart sounds. Absent: systolic murmur, diastolic murmur, rubs, gallop, clicks GI/Abdominal exam: Present: soft, normal bowel sounds. Absent: distended, tenderness, guarding, rebound, rigid Extremities exam: Present: normal inspection, full ROM, normal capillary refill. Absent: tenderness, pedal edema, joint swelling, calf tenderness Back exam: Present: normal inspection Neurological exam: Present: alert, oriented X3, CN II-XII intact Psychiatric exam: Present: normal affect, normal mood Skin exam: Present: warm, dry, intact, normal color. Absent: rash Course Vital Signs 08/25/19 01:34 Temperature 97.4 F L Pulse Rate 70 Respiratory 20 Rate Blood Pressure 109/69 O2 Sat by Pulse 100 Oximetry - Reevaluation(s) Reevaluation #1: 08/25/19 01:50 Medical record reviewed Reevaluation #2: 08/25/19 01:51 Patient has adequate pain control Reevaluation #3: Studies CXR and R rib study negative for acute disease Chest Pain MDM - MDM 63 female here for evaluation chest pain right-sided chest pain. Patient improved pain and pain control currently. Patient can be discharged Disposition Clinical Impression: Rib pain on right side Disposition: HOME SELF-CARE Condition: Good Instructions (If sedation given, give patient instructions): Costochondritis (ED) Is patient prescribed a controlled substance at d/c from ED?: No Referrals: Vahid Carr MD [Primary Care Provider] - 1-2 days
--- NOTE | 2019-08-25 02:07 | XR ---
EXAMINATION TYPE: XR ribs RT w pa chest xray DATE OF EXAM: 08/25/2019 COMPARISON: NONE HISTORY: Rib pain TECHNIQUE: 3 views FINDINGS: Heart is normal. Lungs are clear of infiltrate. There is no pleural effusion or pneumothora x. There are emphysematous changes in the upper lobes. The right ribs appear intact. IMPRESSION: No rib fracture seen. There is probably some COPD. Normal heart.
[2019-08-25 02:49] VITALS: BP 143/85; PULSE 72; RESP 18; TEMP 97
== END 2019-08-25 02:49 | disposition home or self-care (01) ==
LOC: EC 01:25
DX: R07.81 Pleurodynia (principal); R07.89 Other chest pain; M54.9 Dorsalgia, unspecified; J44.9 Chronic obstructive pulmonary disease, unspecified; E78.5 Hyperlipidemia, unspecified; M19.90 Unspecified osteoarthritis, unspecified site; F17.200 Nicotine dependence, unspecified, uncomplicated; Z88.0 Allergy status to penicillin; Z88.1 Allergy status to other antibiotic agents; Z88.6 Allergy status to analgesic agent; Z88.8 Allergy status to other drugs, medicaments and biological substances; Z91.013 Allergy to seafood; Z91.018 Allergy to other foods; Z91.040 Latex allergy status; Z79.1 Long term (current) use of non-steroidal anti-inflammatories (NSAID); Z79.899 Other long term (current) drug therapy; X50.9XXA Other and unspecified overexertion or strenuous movements or postures, initial encounter; Y93.89 Activity, other specified
CPT/HCPCS: 71101; 99283; 96372; J1885

== ENCOUNTER 2019-09-16 19:25 | Emergency (ER) | payer OTHER ==
[2019-09-16 19:30] VITALS: BP 126/83; PULSE 75; RESP 18; TEMP 97.9
[2019-09-16] MEDS ORDERED: KETOROLAC 30 MG/ML 1 ML VIAL IM STA (19:43)
--- NOTE | 2019-09-16 20:13 | ED ---
General Adult HPI - General Chief complaint: Fall Stated complaint: Fall Time Seen by Provider: 09/16/19 19:35 Source: patient Mode of arrival: wheelchair Limitations: no limitations - History of Present Illness Initial comments: 63-year-old female patient presents to the emergency department today for evaluation of low back pain after a slip and fall accident. Patient states around 5 PM she was getting out of her car when she slipped on ice and fell landing on her "tailbone". Patient states that she has had pain to the region since. Patient states it is difficult to ambulate. She denies any pain radiating down her legs. Denies any numbness, tingling, weakness to the lower extremities. She denies any saddle anesthesia or loss of bowel or bladder control. Patient denies hitting her head or losing consciousness with the fall. Denies any other injuries. Patient take Tylenol earlier in the day but nothing since. Patient denies any headache, neck pain, chest pain, shortness of breath, dizziness, weakness, abdominal pain, nausea, vomiting, or difficulties with bowel movements or urination. - Related Data Home Medications Medication Instructions Recorded Confirmed Albuterol Inhaler [Ventolin Hfa 1 - 2 puff INHALATION RT-Q6H PRN 01/28/16 11/10/17 Inhaler] Ergocalciferol (Vitamin D2) 50,000 unit PO Q30D 03/16/16 11/10/17 [Drisdol] Calcium Carbonate [Calcium] 600 mg PO BID 01/17/17 11/10/17 Atorvastatin [Lipitor] 20 mg PO DAILY 11/10/17 11/10/17 Ketorolac [Toradol] 10 mg PO Q6H PRN 11/10/17 11/10/17 Loratadine [Claritin] 10 mg PO DAILY PRN 11/10/17 11/10/17 busPIRone HCl [Buspar] 5 mg PO TID PRN 11/10/17 11/10/17 Previous Rx's Medication Instructions Recorded Ondansetron Odt [Zofran Odt] 4 mg PO Q8HR PRN #12 tab 11/10/17 Cyclobenzaprine [Flexeril] 10 mg PO TID #15 tab 09/16/19 Allergies Allergy/AdvReac Type Severity Reaction Status Date / Time dimenhydrinate Allergy Rash/Hives Verified 09/16/19 19:30 [From Dramamine] latex Allergy Rash/Hives Verified 09/16/19 19:30 Penicillins Allergy Rash/Hives Verified 09/16/19 19:30 shellfish derived [Shellfish] Allergy Anaphylaxis Verified 09/16/19 19:30 erythromycin base AdvReac Nausea & Verified 09/16/19 19:30 [Erythromycin Base] Vomiting ibuprofen [From Motrin] AdvReac Nausea & Verified 09/16/19 19:30 Vomiting ZUCCHINI AdvReac Nausea & Uncoded 09/16/19 19:30 Vomiting & Diarrhea Review of Systems ROS Statement: Those systems with pertinent positive or pertinent negative responses have been documented in the HPI. ROS Other: All systems not noted in ROS Statement are negative. Past Medical History Past Medical History: COPD, Hyperlipidemia, Osteoarthritis (OA) Additional Past Medical History / Comment(s): back pain, DDD History of Any Multi-Drug Resistant Organisms: None Reported Past Surgical History: Hernia Repair, Hysterectomy, Orthopedic Surgery Additional Past Surgical History / Comment(s): Rt. arthroscopic knee surgery, Past Anesthesia/Blood Transfusion Reactions: No Reported Reaction Past Psychological History: Anxiety Smoking Status: Current every day smoker Past Alcohol Use History: None Reported Past Drug Use History: None Reported - Past Family History Mother Family Medical History: Myocardial Infarction ([place]) Father Family Medical History: Liver Disease, Pneumonia Sister(s) Family Medical History: Coronary Artery Disease (CAD), Diabetes Mellitus, Deep Vein Thrombosis (DVT), Hyperlipidemia, Hypertension General Exam Limitations: no limitations General appearance: alert, in no apparent distress, other (This is a well- developed, well-nourished adult female patient in no acute distress. Vital signs upon presentation are temperature to 7.9F, pulse 75, respirations 18, blood pressure 126/83, pulse ox 99% on room air.) Eye exam: Present: normal appearance, PERRL, EOMI. Absent: scleral icterus, conjunctival injection, periorbital swelling ENT exam: Present: normal exam, normal oropharynx, mucous membranes moist Neck exam: Present: normal inspection, full ROM, other (Nontender, no step-off, no deformity to firm midline palpation of the posterior cervical spine. Full range of motion without pain or limitation.). Absent: tenderness, meningismus, lymphadenopathy Respiratory exam: Present: normal lung sounds bilaterally. Absent: respiratory distress, wheezes, rales, rhonchi, stridor Cardiovascular Exam: Present: regular rate, normal rhythm, normal heart sounds. Absent: systolic murmur, diastolic murmur, rubs, gallop, clicks GI/Abdominal exam: Present: soft, normal bowel sounds. Absent: distended, tenderness, guarding, rebound, rigid Extremities exam: Present: normal inspection, full ROM, normal capillary refill, other (Skin to the lower extremities is pink, warm, dry. Cap refills less than 3 seconds. Pedal and posttibial pulses are 2+ and equal bilaterally.). Absent: tenderness, pedal edema, joint swelling, calf tenderness Back exam: Present: normal inspection, vertebral tenderness (Lower lumbar and sacral vertebral tenderness) Neurological exam: Present: alert, oriented X3, CN II-XII intact Psychiatric exam: Present: normal affect, normal mood Skin exam: Present: warm, dry, intact, normal color. Absent: rash Course Vital Signs 09/16/19 19:26 Temperature 97.9 F Pulse Rate 75 Respiratory 18 Rate Blood Pressure 126/83 O2 Sat by Pulse 99 Oximetry Medical Decision Making - Medical Decision Making 63-year-old female patient presents to the emergency department today for evaluation of low back pain after slip and fall accident. Patient states the area over her "tailbone" is hurting. Physical examination does reveal tenderness over the lower lumbar and sacral region. There is no abnormalities upon inspection. She has no concerning symptoms for cauda equina. She is able to ambulate. X-rays of the lumbosacral spine and the pelvis were negative for any acute abnormalities. Patient is instructed to continue home medications for pain. She'll be given up her prescription for Flexeril as she is out. She is instructed to follow-up with her primary care physician for recheck in one to days. Return parameters were discussed in detail. She verbalizes understanding and agrees with this plan. - Radiology Data Radiology results: report reviewed, image reviewed Single view of the pelvis is obtained. Report reviewed in its entirety. Impression by Dr. Wilson shows negative exam. No pelvic fracture. X-rays of the lumbosacral spine are obtained. Report reviewed in its entirety. Impression by Dr. Wilson shows negative lumbar spine exam. No fracture seen. Osteopenia. Disposition Clinical Impression: Contusion of lower back Disposition: HOME SELF-CARE Condition: Good Instructions (If sedation given, give patient instructions): Acute Low Back Pain (ED), Contusion in Adults (ED) Additional Instructions: Continue all medications. Follow-up with the primary care physician for recheck in 1-2 days. Return to the emergency department immediately for any new, worsening, or concerning symptoms. Prescriptions: Cyclobenzaprine [Flexeril] 10 mg PO TID #15 tab Is patient prescribed a controlled substance at d/c from ED?: No Referrals: Vahid Carr MD [Primary Care Provider] - 1-2 days Time of Disposition: 20:50
--- NOTE | 2019-09-16 20:42 | XR ---
EXAMINATION TYPE: XR lumbosacral spine min 4V DATE OF EXAM: 09/16/2019 COMPARISON: NONE HISTORY: Pain TECHNIQUE: 6 views FINDINGS: Lumbar vertebra have normal alignment. Disc spaces are normal. Posterior elements are intac t. There is no compression fracture. There is osteopenia. The sacroiliac joints appear intact. IMPRESSION: Negative lumbar spine exam. No fracture seen. Osteopenia.
--- NOTE | 2019-09-16 20:43 | XR ---
EXAMINATION TYPE: XR pelvis AP view DATE OF EXAM: 09/16/2019 COMPARISON: NONE HISTORY: Fall. Pain. TECHNIQUE: Single view FINDINGS: Pelvic ring appears intact. Proximal femurs and hip joints are intact. Sacroiliac joints ap pear normal. IMPRESSION: Negative exam. No pelvic fracture.
[2019-09-16] MEDS ORDERED: CYCLOBENZAPRINE 10MG STARTER 3 TAB BTL PO STA (21:17)
== END 2019-09-16 21:25 | disposition home or self-care (01) ==
LOC: EC 19:25
DX: S30.0XXA Contusion of lower back and pelvis, initial encounter (principal); E78.5 Hyperlipidemia, unspecified; M19.90 Unspecified osteoarthritis, unspecified site; J44.9 Chronic obstructive pulmonary disease, unspecified; F41.9 Anxiety disorder, unspecified; F17.200 Nicotine dependence, unspecified, uncomplicated; Z79.899 Other long term (current) drug therapy; Z88.0 Allergy status to penicillin; Z88.1 Allergy status to other antibiotic agents; Z88.6 Allergy status to analgesic agent; Z88.8 Allergy status to other drugs, medicaments and biological substances; Z91.040 Latex allergy status; Z91.013 Allergy to seafood; Z91.018 Allergy to other foods; Z98.890 Other specified postprocedural states; W00.0XXA Fall on same level due to ice and snow, initial encounter; Y93.89 Activity, other specified; Y92.89 Other specified places as the place of occurrence of the external cause
CPT/HCPCS: 99283; 96372; 72110; 72170; J1885

== ENCOUNTER 2019-11-15 00:15 | Emergency (ER) | payer OTHER ==
[2019-11-15 00:21] VITALS: BP 124/83; PULSE 76; RESP 20; TEMP 98
--- NOTE | 2019-11-15 01:08 | ED ---
Lower Extremity Injury HPI - General Chief Complaint: Extremity Injury, Lower Stated Complaint: Leg Pain Time Seen by Provider: 11/15/19 00:25 Source: patient, family Mode of arrival: ambulatory Limitations: no limitations - History of Present Illness Initial Comments: Patient is a 63-year-old female presenting to emergency Department with complaints of left lower leg pain times one day. Patient states she has been sitting a lot at home and she is not able to go anywhere. Patient states this evening she went to stand up and noticed pain in her left calf. Patient states she had a hard time walking secondary to his pain. She denies falling or any other trauma. She denies history of blood clots. Patient states the pain has continued and she is worried about a blood clot. She denies any recent fever, chills, cough, shortness of breath. She denies any previous injuries to her left lower extremity. Patient has no other complaints at this time. Upon arrival to ER, her vitals are stable. - Related Data Home Medications Medication Instructions Recorded Confirmed Albuterol Inhaler (Bulk) [Ventolin 1 - 2 puff INHALATION RT-Q6H PRN 01/28/16 11/10/17 Hfa Inhaler (Bulk)] Ergocalciferol (Vitamin D2) 50,000 unit PO Q30D 03/16/16 11/10/17 [Drisdol] Calcium Carbonate [Calcium] 600 mg PO BID 01/17/17 11/10/17 Atorvastatin [Lipitor] 20 mg PO DAILY 11/10/17 11/10/17 Ketorolac [Toradol] 10 mg PO Q6H PRN 11/10/17 11/10/17 Loratadine [Claritin] 10 mg PO DAILY PRN 11/10/17 11/10/17 busPIRone HCl [Buspar] 5 mg PO TID PRN 11/10/17 11/10/17 Previous Rx's Medication Instructions Recorded Ondansetron Odt [Zofran Odt] 4 mg PO Q8HR PRN #12 tab 11/10/17 Cyclobenzaprine [Flexeril] 10 mg PO TID #15 tab 09/16/19 Allergies Allergy/AdvReac Type Severity Reaction Status Date / Time dimenhydrinate Allergy Rash/Hives Verified 11/15/19 00:21 [From Dramamine] latex Allergy Rash/Hives Verified 11/15/19 00:21 Penicillins Allergy Rash/Hives Verified 11/15/19 00:21 shellfish derived [Shellfish] Allergy Anaphylaxis Verified 11/15/19 00:21 erythromycin base AdvReac Nausea & Verified 11/15/19 00:21 [Erythromycin Base] Vomiting ibuprofen [From Motrin] AdvReac Nausea & Verified 11/15/19 00:21 Vomiting ZUCCHINI AdvReac Nausea & Uncoded 11/15/19 00:21 Vomiting & Diarrhea Review of Systems ROS Statement: Those systems with pertinent positive or pertinent negative responses have been documented in the HPI. ROS Other: All systems not noted in ROS Statement are negative. Past Medical History Past Medical History: COPD, Hyperlipidemia, Osteoarthritis (OA) Additional Past Medical History / Comment(s): back pain, DDD History of Any Multi-Drug Resistant Organisms: None Reported Past Surgical History: Hernia Repair, Hysterectomy, Orthopedic Surgery Additional Past Surgical History / Comment(s): Rt. arthroscopic knee surgery, Past Anesthesia/Blood Transfusion Reactions: No Reported Reaction Past Psychological History: Anxiety Smoking Status: Current every day smoker Past Alcohol Use History: None Reported Past Drug Use History: None Reported - Past Family History Mother Family Medical History: Myocardial Infarction ([place]) Father Family Medical History: Liver Disease, Pneumonia Sister(s) Family Medical History: Coronary Artery Disease (CAD), Diabetes Mellitus, Deep Vein Thrombosis (DVT), Hyperlipidemia, Hypertension General Exam - General Exam Comments Initial Comments: GENERAL: Well-appearing, well-nourished and in no acute distress. HEAD: Atraumatic, normocephalic. EYES: Pupils equal round and reactive to light, extraocular movements intact, sclera anicteric, conjunctiva are normal. ENT: TMs normal, nares patent, oropharynx clear without exudates. Moist mucous membranes. NECK: Normal range of motion, supple without lymphadenopathy or JVD. LUNGS: Breath sounds clear to auscultation bilaterally and equal. No wheezes rales or rhonchi. HEART: Regular rate and rhythm without murmurs, rubs or gallops. ABDOMEN: Soft, nontender, normoactive bowel sounds. No guarding, no rebound. No masses appreciated. : Deferred EXTREMITIES: Mild pain with palpation of the left gastric area. Increased pain with forced dorsiflexion. There is no redness or swelling to the area. She is neurovascular intact. No clubbing or cyanosis. NEUROLOGICAL: Normal speech, normal gait. PSYCH: Normal mood, normal affect. SKIN: Warm, Dry, normal turgor, no rashes or lesions noted. Limitations: no limitations Course Vital Signs 11/15/19 00:16 Temperature 98 F Pulse Rate 76 Respiratory 20 Rate Blood Pressure 124/83 O2 Sat by Pulse 100 Oximetry Medical Decision Making - Medical Decision Making Patient is a 63-year-old female presenting with left lower leg pain times one day and is concerned for blood clot. Her vitals are stable. Ultrasound of the left lower extremity shows no signs of a DVT. I discussed the patient is most likely a muscle strain. She may use heat to the area and gentle stretching. She may take Tylenol for discomfort. She is in agreement with this plan of care. She is stable for discharge. Disposition Clinical Impression: Pain of left calf Disposition: HOME SELF-CARE Condition: Stable Instructions (If sedation given, give patient instructions): Muscle Strain (ED) Additional Instructions: Please return to the Emergency Department if symptoms worsen or any other concerns. May use heat to the area and gentle stretching. May take Tylenol for discomfort. Is patient prescribed a controlled substance at d/c from ED?: No Referrals: Vahid Carr MD [Primary Care Provider] - 1-2 days
--- NOTE | 2019-11-15 01:16 | US ---
EXAMINATION TYPE: US venous doppler duplex LE LT DATE OF EXAM: 11/15/2019 1:03 AM COMPARISON: US CLINICAL HISTORY: pain in distal leg. Pain in left distal leg x 1.5 hours. No hx of DVT. Patient does not take blood thinners. SIDE PERFORMED: Left TECHNIQUE: The lower extremity deep venous system is examined utilizing real time linear array sonog sachin with graded compression, doppler sonography and color-flow sonography. VESSELS IMAGED: External Iliac Vein (EIV) Common Femoral Vein Deep Femoral Vein Greater Saphenous Vein * Femoral Vein Popliteal Vein Small Saphenous Vein * Proximal Calf Veins (* superficial vessels) Left Leg: No evidence of DVT in veins imaged at this time from prox calf veins to EIV. IMPRESSION: Normal exam. No deep vein thrombosis in the left leg.
== END 2019-11-15 01:37 | disposition home or self-care (01) ==
LOC: EC 00:15
DX: M79.662 Pain in left lower leg (principal); J44.9 Chronic obstructive pulmonary disease, unspecified; E78.5 Hyperlipidemia, unspecified; M19.90 Unspecified osteoarthritis, unspecified site; F41.9 Anxiety disorder, unspecified; F17.200 Nicotine dependence, unspecified, uncomplicated; Z79.1 Long term (current) use of non-steroidal anti-inflammatories (NSAID); Z79.899 Other long term (current) drug therapy; Z88.8 Allergy status to other drugs, medicaments and biological substances; Z91.040 Latex allergy status; Z88.0 Allergy status to penicillin; Z91.013 Allergy to seafood; Z88.1 Allergy status to other antibiotic agents; Z88.6 Allergy status to analgesic agent; Z91.018 Allergy to other foods
CPT/HCPCS: 99283

== ENCOUNTER 2022-04-11 10:24 | Emergency (ER) | payer OTHER, MEDICARE ==
[2022-04-11 10:31] VITALS: BP 107/70; PULSE 69; RESP 16; TEMP 98
--- NOTE | 2022-04-11 11:00 | ED ---
General Adult HPI - General Chief complaint: Wound/Laceration Stated complaint: lt arm pain Time Seen by Provider: 04/11/22 10:33 Source: patient Mode of arrival: ambulatory Limitations: no limitations - History of Present Illness Initial comments: Dictation was produced using [employer] dictation software. please excuse any grammatical, word or spelling errors. Chief Complaint: 66-year-old female presents to the emergency department for left forearm wound History of Present Illness: Patient 66-year-old female she presents with an ab rasion to her left forearm after having had her arm crushed between a cabinet in the door. Patient states that she had sloughing of of the skin. She didn't putting antibiotic ointment and dressing the wound. Patient states she also has some forearm pain with various movements. Patient worried that her wound is infected. The ROS documented in this emergency department record has been reviewed and confirmed by me. Those systems with pertinent positive or negative responses have been documented in the HPI. All other systems are other negative and/or noncontributory. PHYSICAL EXAM: General Impression: Alert and oriented x3, not in acute distress HEENT: Normocephalic atraumatic, extra-ocular movements intact, pupils equal and reactive to light bilaterally, mucous membranes moist. Cardiovascular: Heart regular rate and rhythm Chest: Able to complete full sentences, no retractions, no tachypnea Left upper extremity: Does appear to be a mild sloughing of the epidermis with exposed dermis. No bony tenderness with palpation, neurovascularly intact Musculoskeletal: Pulses present and equal in all extremities, no peripheral edema Motor: no focal deficits noted Neurological: CN II-XII grossly intact, no focal motor or sensory deficits noted Skin: Intact with no visualized rashes Psych: Normal affect and mood ED course: 66-year-old female presents to the emergency department for abrasion to the left forearm. Vital signs upon arrival are within acceptable limits. Wound is benign appearing. Patient given prescription of Keflex and advised to be taken if she starts to develop any redness. Otherwise she is told to continue triple antibiotic ointment and dressing changes. - Related Data Home Medications Medication Instructions Recorded Confirmed Albuterol Inhaler [Ventolin Hfa 1 - 2 puff INHALATION RT-Q6H PRN 01/28/16 11/10/17 Inhaler] Ergocalciferol (Vitamin D2) 50,000 unit PO Q30D 08/09/16 04/05/18 [Drisdol] Calcium Carbonate [Calcium] 600 mg PO BID 01/17/17 11/10/17 Atorvastatin [Lipitor] 20 mg PO DAILY 11/10/17 11/10/17 Ketorolac [Toradol] 10 mg PO Q6H PRN 11/10/17 11/10/17 Loratadine [Claritin] 10 mg PO DAILY PRN 11/10/17 11/10/17 busPIRone HCl [Buspar] 5 mg PO TID PRN 11/10/17 11/10/17 Previous Rx's Medication Instructions Recorded Ondansetron Odt [Zofran Odt] 4 mg PO Q8HR PRN #12 tab 11/10/17 Cyclobenzaprine [Flexeril] 10 mg PO TID #15 tab 09/16/19 Cephalexin [Keflex] 500 mg PO Q6HR 5 Days #20 cap 04/11/22 Allergies Allergy/AdvReac Type Severity Reaction Status Date / Time dimenhydrinate Allergy Rash/Hives Verified 04/11/22 10:31 [From Dramamine] latex Allergy Rash/Hives Verified 04/11/22 10:31 Penicillins Allergy Rash/Hives Verified 04/11/22 10:31 shellfish derived [Shellfish] Allergy Anaphylaxis Verified 04/11/22 10:31 erythromycin base AdvReac Nausea & Verified 04/11/22 10:31 [Erythromycin Base] Vomiting ibuprofen [From Motrin] AdvReac Nausea & Verified 04/11/22 10:31 Vomiting ZUCCHINI AdvReac Nausea & Uncoded 04/11/22 10:31 Vomiting & Diarrhea Review of Systems ROS Statement: Those systems with pertinent positive or pertinent negative responses have been documented in the HPI. ROS Other: All systems not noted in ROS Statement are negative. Past Medical History Past Medical History: COPD, Hyperlipidemia, Osteoarthritis (OA) Additional Past Medical History / Comment(s): back pain, DDD History of Any Multi-Drug Resistant Organisms: None Reported Past Surgical History: Hernia Repair, Hysterectomy, Orthopedic Surgery Additional Past Surgical History / Comment(s): Rt. arthroscopic knee surgery, Past Anesthesia/Blood Transfusion Reactions: No Reported Reaction Past Psychological History: Anxiety Smoking Status: Current every day smoker Past Alcohol Use History: None Reported Past Drug Use History: None Reported - Past Family History Mother Family Medical History: Myocardial Infarction ([place]) Father Family Medical History: Liver Disease, Pneumonia Sister(s) Family Medical History: Coronary Artery Disease (CAD), Diabetes Mellitus, Deep Vein Thrombosis (DVT), Hyperlipidemia, Hypertension General Exam Limitations: no limitations Course Vital Signs 04/11/22 10:27 Temperature 98 F Pulse Rate 69 Respiratory 16 Rate Blood Pressure 107/70 O2 Sat by Pulse 98 Oximetry Disposition Clinical Impression: Abrasion Disposition: HOME SELF-CARE Condition: Good Instructions (If sedation given, give patient instructions): Abrasion (ED) Prescriptions: Cephalexin [Keflex] 500 mg PO Q6HR 5 Days #20 cap Is patient prescribed a controlled substance at d/c from ED?: No Referrals: Vahid Carr MD [Primary Care Provider] - 1-2 days Time of Disposition: 11:00
== END 2022-04-11 11:28 | disposition home or self-care (01) ==
LOC: EC 10:24
DX: S50.812A Abrasion of left forearm, initial encounter (principal); J44.9 Chronic obstructive pulmonary disease, unspecified; E78.5 Hyperlipidemia, unspecified; M19.90 Unspecified osteoarthritis, unspecified site; F17.200 Nicotine dependence, unspecified, uncomplicated; Z79.51 Long term (current) use of inhaled steroids; Z88.8 Allergy status to other drugs, medicaments and biological substances; Z91.040 Latex allergy status; Z88.0 Allergy status to penicillin; Z91.013 Allergy to seafood; Z88.1 Allergy status to other antibiotic agents; Z88.6 Allergy status to analgesic agent; Z91.018 Allergy to other foods; W23.0XXA Caught, crushed, jammed, or pinched between moving objects, initial encounter
CPT/HCPCS: 99283

== ENCOUNTER 2022-08-03 00:35 | Emergency (ER) | payer MEDICARE, OTHER ==
[2022-08-03 00:45] VITALS: TEMP 98.1
--- NOTE | 2022-08-03 01:46 | ED ---
Extremity Problem HPI - General Chief complaint: Extremity Problem,Nontraumatic Stated complaint: Left Leg Pain Time Seen by Provider: 08/03/22 01:15 Source: patient, RN notes reviewed Mode of arrival: wheelchair Limitations: no limitations - History of Present Illness Initial comments: This is a 66-year-old female with a history of hyperlipidemia, osteoarthritis, COPD. She presents to the emergency department today complaining of left calf pain patient states she was just reaching down to take of her boot about 3 days ago and had a cramp in her calf. Patient states it then happened at her right calf yesterday and again today in her left calf. This resolved at this time although she does have some soreness in the left calf area. There is no edema.. Patient also has a history of back pain and degenerative disc disease. Patient denies any history of electrolyte disturbance No headache, no fever or chills, no changes in vision or hearing, no sore throat or difficulty with speech, no neck pain, no chest pain or shortness of breath, n o abdominal pain, no nausea or vomiting, no changes in urination or bowel movements, no numbness or tingling,, no skin rashes or lesions. Past medical, surgical, social, and family history reviewed. MD Complaint: extremity pain - Related Data Home Medications Medication Instructions Recorded Confirmed Albuterol Inhaler [Ventolin Hfa 1 - 2 puff INHALATION RT-Q6H PRN 01/28/16 11/10/17 Inhaler] Ergocalciferol (Vitamin D2) 50,000 unit PO Q30D 03/16/16 11/10/17 [Drisdol] Calcium Carbonate [Calcium] 600 mg PO BID 01/17/17 11/10/17 Atorvastatin [Lipitor] 20 mg PO DAILY 11/10/17 11/10/17 Ketorolac [Toradol] 10 mg PO Q6H PRN 11/10/17 11/10/17 Loratadine [Claritin] 10 mg PO DAILY PRN 11/10/17 11/10/17 busPIRone HCl [Buspar] 5 mg PO TID PRN 11/10/17 11/10/17 Previous Rx's Medication Instructions Recorded Ondansetron Odt [Zofran Odt] 4 mg PO Q8HR PRN #12 tab 11/10/17 Cyclobenzaprine [Flexeril] 10 mg PO TID #15 tab 09/16/19 Cephalexin [Keflex] 500 mg PO Q6HR 5 Days #20 cap 04/11/22 Cyclobenzaprine [Flexeril] 10 mg PO TID PRN #20 tab 08/03/22 Allergies Allergy/AdvReac Type Severity Reaction Status Date / Time dimenhydrinate Allergy Rash/Hives Verified 08/03/22 00:45 [From Dramamine] latex Allergy Rash/Hives Verified 08/03/22 00:45 Penicillins Allergy Rash/Hives Verified 08/03/22 00:45 shellfish derived [Shellfish] Allergy Anaphylaxis Verified 08/03/22 00:45 erythromycin base AdvReac Nausea & Verified 08/03/22 00:45 [Erythromycin Base] Vomiting ibuprofen [From Motrin] AdvReac Nausea & Verified 08/03/22 00:45 Vomiting ZUCCHINI AdvReac Nausea & Uncoded 08/03/22 00:45 Vomiting & Diarrhea Review of Systems ROS Statement: Those systems with pertinent positive or pertinent negative responses have been documented in the HPI. ROS Other: All systems not noted in ROS Statement are negative. Past Medical History Past Medical History: COPD, Hyperlipidemia, Osteoarthritis (OA) Additional Past Medical History / Comment(s): back pain, DDD History of Any Multi-Drug Resistant Organisms: None Reported Past Surgical History: Hernia Repair, Hysterectomy, Orthopedic Surgery Additional Past Surgical History / Comment(s): Rt. arthroscopic knee surgery, Past Anesthesia/Blood Transfusion Reactions: No Reported Reaction Past Psychological History: Anxiety Smoking Status: Current every day smoker Past Alcohol Use History: None Reported Past Drug Use History: None Reported - Past Family History Mother Family Medical History: Myocardial Infarction ([place]) Father Family Medical History: Liver Disease, Pneumonia Sister(s) Family Medical History: Coronary Artery Disease (CAD), Diabetes Mellitus, Deep Vein Thrombosis (DVT), Hyperlipidemia, Hypertension General Exam Limitations: no limitations General appearance: alert, in no apparent distress Head exam: Present: atraumatic, normocephalic, normal inspection Eye exam: Present: normal appearance, PERRL, EOMI. Absent: scleral icterus, conjunctival injection, periorbital swelling ENT exam: Present: normal exam, mucous membranes moist Neck exam: Present: normal inspection. Absent: tenderness, meningismus, lymphadenopathy Respiratory exam: Present: normal lung sounds bilaterally. Absent: respiratory distress, wheezes, rales, rhonchi, stridor Cardiovascular Exam: Present: regular rate, normal rhythm, normal heart sounds. Absent: systolic murmur, diastolic murmur, rubs, gallop, clicks GI/Abdominal exam: Present: soft, normal bowel sounds. Absent: distended, tenderness, guarding, rebound, rigid Extremities exam: Present: normal inspection, full ROM, normal capillary refill. Absent: tenderness, pedal edema, joint swelling, calf tenderness Back exam: Present: normal inspection Neurological exam: Present: alert, oriented X3, CN II-XII intact Psychiatric exam: Present: normal affect, normal mood Skin exam: Present: warm, dry, intact, normal color. Absent: rash Course Vital Signs 08/03/22 00:42 Temperature 98.1 F Pulse Rate 73 Respiratory 18 Rate Blood Pressure 121/81 O2 Sat by Pulse 99 Oximetry Medical Decision Making - Medical Decision Making Was pt. sent in by a medical professional or institution? @ -[no] Did you speak to anyone other than the patient for history? @ -[No] Did you review nursing and triage notes? @ -Disagree, patient states that the spasms started after she did some maneuvers. No direct trauma Were old charts reviewed? @ -Or charts reviewed Differential Diagnosis? @ -Muscle spasm, DVT, infectious process, cellulitis, muscle strain, this is not an exhaustive list U/S interpreted by me (1pt. min.)? @ -Independent interpretation of the venous Doppler reveals no evidence of acute pathology as read by me Did you discuss the management of the patient with other professionals? @ -ED attending physician What co-morbidities impacted this encounter? (DM, HTN, Smoking, COPD, CAD, Cancer, CVA, Hep., AIDS, mental health diagnosis, sleep apnea, morbid obesity)? @ -No definitive compounding factors Was patient admitted / discharged? @ -Was discharged after normal Doppler and a normal chemistry panel. Undiagnosed new problem with uncertain prognosis? @ -[none] Drug Therapy requiring intensive monitoring for toxicity (Heparin, Nitro, Insulin, Cardizem)? @ -[none] Were any procedures done? @ -[none] Diagnosis/symptom? @ -Spasm bilateral lower legs/caps Acute, or Chronic, or Acute on Chronic? @ -Acute Uncomplicated (without systemic symptoms) or Complicated (systemic symptoms)? @ -Uncomplicated Side effects of treatment? @ -[none] Exacerbation, Progression, or Severe Exacerbation] @ -[no] Poses a threat to life or bodily function? @ - Unlikely Patient was told to return to the ER for any signs or symptoms worsen. Told to return immediately if any other problems arise. All questions answered. Treatment plan discussed. Patient in agreement Every effort has been made to ensure accuracy of this dictation. However, due to the limitations of electronic medical records and dictation devices, errors in charting still occur. Incident Response Consultant Dr. Connor - Lab Data Result diagrams: 08/03/22 02:47 Lab Results 08/03/22 Range/Units 02:47 Sodium 139 (137-145) mmol/L Potassium 4.4 (3.5-5.1) mmol/L Chloride 110 H (98-107) mmol/L Carbon Dioxide 25 (22-30) mmol/L Anion Gap 4 mmol/L BUN 14 (7-17) mg/dL Creatinine 0.79 (0.52-1.04) mg/dL Est GFR (CKD-EPI)AfAm >90 (>60 ml/min/1.73 sqM) Est GFR (CKD-EPI)NonAf 80 (>60 ml/min/1.73 sqM) Glucose 101 H (74-99) mg/dL Calcium 9.8 (8.4-10.2) mg/dL Magnesium 2.1 (1.6-2.3) mg/dL - Radiology Data Radiology results: report reviewed, image reviewed Disposition Clinical Impression: Muscle spasm of both lower legs Disposition: HOME SELF-CARE Condition: Good Instructions (If sedation given, give patient instructions): Muscle Spasm (ED) Additional Instructions: Follow-up with your regular physician as directed. Return to the ER immediately if any symptoms worsen, new symptoms arise, or any other problems develop. Do not drive or operate machinery while taking the muscle relaxer. If he wanted additional pain control you can take [id number] Tylenol and/or ibuprofen. Prescriptions: Cyclobenzaprine [Flexeril] 10 mg PO TID PRN #20 tab PRN Reason: Spasms Is patient prescribed a controlled substance at d/c from ED?: No Referrals: Vahid Carr MD [Primary Care Provider] - 08/06/22 Time of Disposition: 03:38
--- NOTE | 2022-08-03 01:53 | US ---
EXAMINATION TYPE: US venous doppler duplex LE LT DATE OF EXAM: 08/03/2022 1:18 AM COMPARISON: NONE CLINICAL HISTORY: Left calf pain, no injury. Left calf pain x 1 day. Pt states it could be from walki ng too much SIDE PERFORMED: Left TECHNIQUE: The lower extremity deep venous system is examined utilizing real time linear array sonog sachin with graded compression, doppler sonography and color-flow sonography. VESSELS IMAGED: Common Femoral Vein Deep Femoral Vein Greater Saphenous Vein * Femoral Vein Popliteal Vein Small Saphenous Vein * Proximal Calf Veins (* superficial vessels) Left Leg: No evidence of DVT IMPRESSION: No evidence of deep vein thrombosis in the left leg.
[2022-08-03 03:18] LABS: African American GFR (CKD) >90 (>60 ml/min/1.73 sqM); Anion Gap 4 mmol/L; Blood Urea Nitrogen 14 mg/dL (7-17); Calcium 9.8 mg/dL (8.4-10.2); Carbon Dioxide 25 mmol/L (22-30); Chloride 110 mmol/L (98-107); Glucose 101 mg/dL (74-99); Magnesium 2.1 mg/dL (1.6-2.3); Non-African American GFR(CKD) 80 (>60 ml/min/1.73 sqM); Potassium 4.4 mmol/L (3.5-5.1); Sodium 139 mmol/L (137-145)
[2022-08-03 04:03] VITALS: BP 128/74; PULSE 68; RESP 17
== END 2022-08-03 04:02 | disposition home or self-care (01) ==
LOC: EC 00:35
DX: M62.831 Muscle spasm of calf (principal); J44.9 Chronic obstructive pulmonary disease, unspecified; E78.5 Hyperlipidemia, unspecified; M19.90 Unspecified osteoarthritis, unspecified site; F41.9 Anxiety disorder, unspecified; F17.200 Nicotine dependence, unspecified, uncomplicated; Z88.8 Allergy status to other drugs, medicaments and biological substances; Z88.0 Allergy status to penicillin; Z91.040 Latex allergy status; Z91.013 Allergy to seafood; Z88.1 Allergy status to other antibiotic agents; Z88.6 Allergy status to analgesic agent; Z91.018 Allergy to other foods; Z79.899 Other long term (current) drug therapy
CPT/HCPCS: 36415; 80048; 83735; 99284

== ENCOUNTER 2024-10-30 18:23 | Emergency (ER) | payer MEDICARE, OTHER ==
[2024-10-30 18:31] VITALS: RESP 18
--- NOTE | 2024-10-30 18:59 | ED ---
General Adult HPI - General Source: patient, RN notes reviewed Mode of arrival: ambulatory Limitations: no limitations <Maria G Green - Last Filed: 10/30/24 18:57> - General Source: patient, RN notes reviewed Mode of arrival: ambulatory Limitations: no limitations - History of Present Illness -: week(s) Location: chest Radiation: non-radiation Severity scale (1-10): 3 Consistency: intermittent Improves with: none Worsens with: none Associated Symptoms: chest pain, cough Treatments Prior to Arrival: none <Panchito David - Last Filed: 10/30/24 21:03> - General Chief complaint: Chest Pain Stated complaint: difficulty breathing, coughing Time Seen by Provider: 10/30/24 18:39 - History of Present Illness Initial comments: Quick [id number] female presenting for department URI symptoms over the past 2 weeks including cough, congestion, rhinorrhea. States over the past 2 to 3 days she has been experiencing a mild difficulty in breathing. Denies chest pain, chest pressure, heart palpitations, dizziness lightheadedness. (Maria G Green) This is a 68 female to ER for upper respiratory infection, cough congestion runny nose history of COPD occasional chest pain especially when coughing or taking a deep breath. Patient having no current chest pain. No recent travel history no sick contacts no fevers, history of COPD history of pleurisy (Panchito David) - Related Data Home Medications Medication Instructions Recorded Confirmed Albuterol Inhaler [Ventolin Hfa 1 - 2 puff INHALATION RT-Q6H PRN 01/28/16 11/10/17 Inhaler] Ergocalciferol (Vitamin D2) 50,000 unit PO Q30D 03/16/16 11/10/17 [Drisdol] Calcium Carbonate [Calcium] 600 mg PO BID 01/17/17 11/10/17 Atorvastatin [Lipitor] 20 mg PO DAILY 11/10/17 11/10/17 Ketorolac [Toradol] 10 mg PO Q6H PRN 11/10/17 11/10/17 Loratadine [Claritin] 10 mg PO DAILY PRN 11/10/17 11/10/17 busPIRone HCl [Buspar] 5 mg PO TID PRN 04/05/18 04/05/18 Previous Rx's Medication Instructions Recorded Ondansetron Odt [Zofran Odt] 4 mg PO Q8HR PRN #12 tab 11/10/17 Cyclobenzaprine [Flexeril] 10 mg PO TID #15 tab 09/16/19 Cephalexin [Keflex] 500 mg PO Q6HR 5 Days #20 cap 04/11/22 Cyclobenzaprine [Flexeril] 10 mg PO TID PRN #20 tab 08/03/22 Allergies Allergy/AdvReac Type Severity Reaction Status Date / Time dimenhydrinate Allergy Rash/Hives Verified 08/03/22 00:45 [From Dramamine] latex Allergy Rash/Hives Verified 08/03/22 00:45 Penicillins Allergy Rash/Hives Verified 08/03/22 00:45 shellfish derived [Shellfish] Allergy Anaphylaxis Verified 08/03/22 00:45 erythromycin base AdvReac Nausea & Verified 08/03/22 00:45 [Erythromycin Base] Vomiting ibuprofen [From Motrin] AdvReac Nausea & Verified 08/03/22 00:45 Vomiting ZUCCHINI AdvReac Nausea & Uncoded 08/03/22 00:45 Vomiting & Diarrhea Review of Systems ROS Other: All systems not noted in ROS Statement are negative. <Maria G Green - Last Filed: 10/30/24 18:57> ROS Other: All systems not noted in ROS Statement are negative. <Panchito David - Last Filed: 10/30/24 21:03> ROS Statement: Those systems with pertinent positive or pertinent negative responses have been documented in the HPI. Past Medical History Past Medical History: COPD, Hyperlipidemia, Osteoarthritis (OA) Additional Past Medical History / Comment(s): back pain, DDD History of Any Multi-Drug Resistant Organisms: None Reported Past Surgical History: Hernia Repair, Hysterectomy, Orthopedic Surgery Additional Past Surgical History / Comment(s): Rt. arthroscopic knee surgery Past Anesthesia/Blood Transfusion Reactions: No Reported Reaction Past Psychological History: Anxiety Smoking Status: Current every day smoker Past Alcohol Use History: None Reported Past Drug Use History: None Reported - Past Family History Mother Family Medical History: Myocardial Infarction ([place]) Father Family Medical History: Liver Disease, Pneumonia Sister(s) Family Medical History: Coronary Artery Disease (CAD), Diabetes Mellitus, Deep Vein Thrombosis (DVT), Hyperlipidemia, Hypertension <NormaMaria G - Last Filed: 10/30/24 18:57> General Exam Limitations: no limitations <StielerMaria G - Last Filed: 10/30/24 18:57> General appearance: alert, in no apparent distress Head exam: Present: atraumatic, normocephalic, normal inspection Eye exam: Present: normal appearance, PERRL, EOMI. Absent: scleral icterus, conjunctival injection, periorbital swelling ENT exam: Present: normal exam, mucous membranes moist Neck exam: Present: normal inspection. Absent: tenderness, meningismus, lymphadenopathy Respiratory exam: Present: normal lung sounds bilaterally. Absent: respiratory distress, wheezes, rales, rhonchi, stridor Cardiovascular Exam: Present: regular rate, normal rhythm, normal heart sounds. Absent: systolic murmur, diastolic murmur, rubs, gallop, clicks GI/Abdominal exam: Present: soft, normal bowel sounds. Absent: distended, tenderness, guarding, rebound, rigid Extremities exam: Present: normal inspection, full ROM, normal capillary refill. Absent: tenderness, pedal edema, joint swelling, calf tenderness Back exam: Present: normal inspection Neurological exam: Present: alert, oriented X3, CN II-XII intact Psychiatric exam: Present: normal affect, normal mood Skin exam: Present: warm, dry, intact, normal color. Absent: rash <Panchito David - Last Filed: 10/30/24 21:03> - General Exam Comments Initial Comments: Visual Physical Exam Vital signs reviewed General: Well-appearing, nontoxic, no acute distress. Head: Normocephalic, atraumatic Eyes: PERRLA, EOMI ENT: Airway patent Chest: Nonlabored breathing Skin: No visual rash, normal skin tone Neuro: Alert and oriented 3 Musculoskeletal: No gross abnormalities (Stieler,Maria G) Course <Panchito David - Last Filed: 10/30/24 21:03> Vital Signs 10/30/24 10/30/24 18:29 20:44 Temperature 97.7 F Pulse Rate 80 Pulse Rate [ 80 Bilateral Sitting Project Management Advisor] Respiratory 18 Rate Blood Pressure 114/76 O2 Sat by Pulse 97 Oximetry - Reevaluation(s) Reevaluation #1: 10/30/24 21:02 Medical records reviewed (Panchito David) Reevaluation #2: 10/30/24 21:02 Patient symptoms improved (Panchito David) Reevaluation #3: 10/30/24 21:02 Patient informed of results questions answered (Panchito David) Reevaluation #4: Was pt. sent in by a medical professional or institution (, [facility], [employer], urgent care, hospital, or detention...) When possible be specific @ -no Did you speak to anyone other than the patient for history (EMS, parent, family, police, friend...)? What history was obtained from this source @ -no Did you review nursing and triage notes (agree or disagree)? Why? @ -agree Are old charts reviewed (outside hosp., previous admission, EMS record, old EKG, old radiological studies, urgent care reports/EKG's, detention records)? Report findings @ -yes Differential Diagnosis (chest pain, altered mental status, abdominal pain women, abdominal pain men, vaginal bleeding, weakness, fever, dyspnea, syncope, headache, dizziness, GI bleed, back pain, seizure, CVA, palpatations, mental health, musculoskeletal)? @ -prior EKG interpreted by me (3pts min.). @ -yes X-rays interpreted by me (1pt min.). @ -yes negative for acute disease CT interpreted by me (1pt min.). @ -no U/S interpreted by me (1pt. min.). @ -no What testing was considered but not performed or refused? (CT, X-rays, U/S, labs)? Why? @ -none What meds were considered but not given or refused? Why? @ -none Did you discuss the management of the patient with other professionals (professionals i.e. [facility], [employer], lab, RT, psych nurse, social services assistant, edge molder, teacher, bomb squad officer, cyanide case hardener)? Give summary @ -no Was smoking cessation discussed for >3mins.? @ -no Was critical care preformed (if so, how long)? @ -no Were there social determinants of health that impacted care today? How? ( Homelessness, low income, unemployed, alcoholism, drug addiction, transportation, low edu. Level, literacy, decrease access to med. care, skilled nursing, rehab)? @ -none Was there de-escalation of care discussed even if they declined (Discuss DNR or withdrawal of care, Hospice)? DNR status @ -no What co-morbidities impacted this encounter? (DM, HTN, Smoking, COPD, CAD, Cancer, CVA, ARF, Chemo, Hep., AIDS, mental health diagnosis, sleep apnea, morbid obesity)? @ -none Was patient admitted / discharged? Hospital course, mention meds given and route, prescriptions, significant lab abnormalities, going to OR and other pertinent info. @ - Undiagnosed new problem with uncertain prognosis? @ -no Drug Therapy requiring intensive monitoring for toxicity (Heparin, Nitro, Insulin, Cardizem)? @ -no Were any procedures done? @ -no Diagnosis/symptom? @ - Acute, or Chronic, or Acute on Chronic? @ -Acute Uncomplicated (without systemic symptoms) or Complicated (systemic symptoms)? @ -Complicated Side effects of treatment? @ -no Exacerbation, Progression, or Severe Exacerbation? @ -exacerbation Poses a threat to life or bodily function? How? (Chest pain, [place], [place], pneumonia, PE, COPD, DKA, ARF, appy, cholecystitis, CVA, Diverticulitis, Homicidal, Suicidal, threat to staff... and all critical care pts) @ -yes (Panchito David) Reevaluation #5: Differential Chest Pain: Stable Angina, Unstable Angina, STEMI, NSTEMI Aortic Dissection, Pneumothorax, M usculoskeletal, Esophageal Spasm GERD, Cholecystitis, Pancreatitis, Zoster, this is not meant to be an all-inclusive list. (Panchito David) EKG Findings - EKG Comments: EKG Findings:: EKG is sinus 76 ND 138 QRS 116 QTc 409 - EKG Results: EKG: interpreted by ERMD <Panchito David - Last Filed: 10/30/24 21:03> Medical Decision Making <Maria G Green - Last Filed: 10/30/24 18:57> - Lab Data Result diagrams: 10/30/24 19:27 10/30/24 19:27 - EKG Data -: EKG Interpreted by Me - Radiology Data Radiology results: report reviewed (Chest x-ray is negative for acute disease), image reviewed <Panchito David - Last Filed: 10/30/24 21:03> - Medical Decision Making I completed the quick note portion of this chart signed Maria G Green PA-C (Maria G Green) 68 female with chest pain pleuritic chest pain history of COPD, patient will be discharged home as she currently feels well (Panchito David) - Lab Data Lab Results 10/30/24 10/30/24 10/30/24 Range/Units 19:27 19:27 19:27 WBC 14.4 H (3.8-10.6) k/uL RBC 5.52 H (3.80-5.40) m/uL Hgb 15.8 (11.4-16.0) gm/dL Hct 48.1 H (34.0-46.0) % MCV 87.1 (80.0-100.0) fL MCH 28.6 (25.0-35.0) pg MCHC 32.8 (31.0-37.0) g/dL RDW 12.8 (11.5-15.5) % Plt Count 362 (150-450) k/uL MPV 8.4 Neutrophils % 82 % Lymphocytes % 13 % Monocytes % 3 % Eosinophils % 1 % Basophils % 0 % Neutrophils # 11.8 H (1.3-7.7) k/uL Lymphocytes # 1.8 (1.0-4.8) k/uL Monocytes # 0.5 (0-1.0) k/uL Eosinophils # 0.2 (0-0.7) k/uL Basophils # 0.0 (0-0.2) k/uL PT 10.6 (10.0-12.5) sec INR 0.9 (<1.2) APTT 23.7 (22.0-30.0) sec Sodium 136 L (137-145) mmol/L Potassium 3.9 (3.5-5.1) mmol/L Chloride 96 L (98-107) mmol/L Carbon Dioxide 28 (22-30) mmol/L Anion Gap 12 mmol/L BUN 10 (7-17) mg/dL Creatinine 0.80 (0.52-1.04) mg/dL Est GFR (CKD-EPI)AfAm 88 (>60 ml/min/1.73 sqM) Est GFR (CKD-EPI)NonAf 77 (>60 ml/min/1.73 sqM) Glucose 102 H (74-99) mg/dL Calcium 10.0 (8.4-10.2) mg/dL Magnesium 2.2 (1.6-2.3) mg/dL Total Bilirubin 0.6 (0.2-1.3) mg/dL AST 23 (14-36) U/L ALT 15 (4-34) U/L Alkaline Phosphatase 117 (38-126) U/L Troponin I (0.000-0.034) ng/mL Total Protein 7.6 (6.3-8.2) g/dL Albumin 4.6 (3.5-5.0) g/dL Influenza Type A (PCR) (Not Detectd) Influenza Type B (PCR) (Not Detectd) RSV (PCR) (Not Detectd) SARS-CoV-2 (PCR) (Not Detectd) 10/30/24 10/30/24 Range/Units 19:27 19:27 WBC (3.8-10.6) k/uL RBC (3.80-5.40) m/uL Hgb (11.4-16.0) gm/dL Hct (34.0-46.0) % MCV (80.0-100.0) fL MCH (25.0-35.0) pg MCHC (31.0-37.0) g/dL RDW (11.5-15.5) % Plt Count (150-450) k/uL MPV Neutrophils % % Lymphocytes % % Monocytes % % Eosinophils % % Basophils % % Neutrophils # (1.3-7.7) k/uL Lymphocytes # (1.0-4.8) k/uL Monocytes # (0-1.0) k/uL Eosinophils # (0-0.7) k/uL Basophils # (0-0.2) k/uL PT (10.0-12.5) sec INR (<1.2) APTT (22.0-30.0) sec Sodium (137-145) mmol/L Potassium (3.5-5.1) mmol/L Chloride (98-107) mmol/L Carbon Dioxide (22-30) mmol/L Anion Gap mmol/L BUN (7-17) mg/dL Creatinine (0.52-1.04) mg/dL Est GFR (CKD-EPI)AfAm (>60 ml/min/1.73 sqM) Est GFR (CKD-EPI)NonAf (>60 ml/min/1.73 sqM) Glucose (74-99) mg/dL Calcium (8.4-10.2) mg/dL Magnesium (1.6-2.3) mg/dL Total Bilirubin (0.2-1.3) mg/dL AST (14-36) U/L ALT (4-34) U/L Alkaline Phosphatase (38-126) U/L Troponin I <0.012 (0.000-0.034) ng/mL Total Protein (6.3-8.2) g/dL Albumin (3.5-5.0) g/dL Influenza Type A (PCR) Not Detected (Not Detectd) Influenza Type B (PCR) Not Detected (Not Detectd) RSV (PCR) Not Detected (Not Detectd) SARS-CoV-2 (PCR) Not Detected (Not Detectd) Disposition <Maria G Green - Last Filed: 10/30/24 18:57> Is patient prescribed a controlled substance at d/c from ED?: No Time of Disposition: 21:00 <Panchito David - Last Filed: 10/30/24 21:03> Clinical Impression: Chest pain, Pleuritic chest pain, Chest wall syndrome, Costalchondritis Disposition: HOME SELF-CARE Condition: Good Instructions (If sedation given, give patient instructions): Chest Pain (ED) Referrals: None,Stated [Primary Care Provider] - 1-2 days
[2024-10-30 19:41] LABS: Basophils % (A) 0 %; Eosinophils # (A) 0.2 k/uL (0-0.7); Eosinophils % (A) 1 %; HCT 48.1 % (34.0-46.0); HGB 15.8 gm/dL (11.4-16.0); Lymphocytes # (A) 1.8 k/uL (1.0-4.8); Lymphocytes % (A) 13 %; MCH 28.6 pg (25.0-35.0); MCHC 32.8 g/dL (31.0-37.0); MCV 87.1 fL (80.0-100.0); Mean Platelet Volume 8.4; Monocytes # (A) 0.5 k/uL (0-1.0); Monocytes % (A) 3 %; Neutrophils # (A) 11.8 k/uL (1.3-7.7); Neutrophils % (A) 82 %; Platelet Count 362 k/uL (150-450); RBC 5.52 m/uL (3.80-5.40); RDW 12.8 % (11.5-15.5); WBC 14.4 k/uL (3.8-10.6)
[2024-10-30 19:53] LABS: INR 0.9 (<1.2); Partial Thromboplastin Time 23.7 sec (22.0-30.0); Prothrombin Time 10.6 sec (10.0-12.5)
[2024-10-30 19:58] LABS: ALT 15 U/L (4-34); AST 23 U/L (14-36); African American GFR (CKD) 88 (>60 ml/min/1.73 sqM); Albumin 4.6 g/dL (3.5-5.0); Alkaline Phosphatase 117 U/L (38-126); Anion Gap 12 mmol/L; Blood Urea Nitrogen 10 mg/dL (7-17); Carbon Dioxide 28 mmol/L (22-30); Chloride 96 mmol/L (98-107); Glucose 102 mg/dL (74-99); Magnesium 2.2 mg/dL (1.6-2.3); Non-African American GFR(CKD) 77 (>60 ml/min/1.73 sqM); Potassium 3.9 mmol/L (3.5-5.1); Sodium 136 mmol/L (137-145); Total Bilirubin 0.6 mg/dL (0.2-1.3); Total Protein 7.6 g/dL (6.3-8.2)
--- NOTE | 2024-10-30 20:09 | XR ---
EXAMINATION TYPE: XR chest 2V DATE OF EXAM: 10/30/2024 7:35 PM COMPARISON: Chest radiographs from 08/25/2019 CLINICAL INDICATION: Female, 68 years old with history of Chest Pain; [facility] TECHNIQUE: XR chest 2V Frontal and lateral views of the chest. FINDINGS: Lungs/Pleura: There is flattening of the diaphragm with increased lucency of the lungs. No evidence o f pneumothorax, pleural effusion or focal consolidation. Pulmonary vascularity: Unremarkable. Heart/mediastinum: Cardiomediastinal silhouette is unremarkable. Musculoskeletal: No acute osseous pathology. IMPRESSION: 1. No acute cardiopulmonary disease process. 2. COPD changes. [facility], , 10/30/2024 8:07 PM
[2024-10-30 20:16] LABS: Influenza A Not Detected (Not Detectd); Influenza B Not Detected (Not Detectd); RSV Not Detected (Not Detectd)
[2024-10-30] MEDS: KETOROLAC 15 MG/ML 1 ML VIAL IVP STA (21:23)
[2024-10-30] MEDS: IPRATROPIUM-ALBUTEROL 3 ML NEB INHALATION STA (21:25)
[2024-10-30] MEDS: DEXAMETHASONE SOD PHOSPHATE 10 MG/ML 1 ML VIAL IVP STA (21:32)
[2024-10-30 21:57] VITALS: BP 102/71; PULSE 74; TEMP 98.3
== END 2024-10-30 22:15 | disposition home or self-care (01) ==
LOC: EC 18:23
DX: M94.0 Chondrocostal junction syndrome [Tietze] (principal); F17.200 Nicotine dependence, unspecified, uncomplicated; Z88.0 Allergy status to penicillin; Z91.013 Allergy to seafood; Z88.1 Allergy status to other antibiotic agents; Z88.6 Allergy status to analgesic agent; Z88.8 Allergy status to other drugs, medicaments and biological substances
CPT/HCPCS: 36415; 94640; 93005; 80053; 83735; 84484; 85025; 85610; 85730; 87636; 71046; 99285; 96374; J1885

== ENCOUNTER 2025-03-03 18:25 | Emergency (ER) | payer MEDICARE, OTHER ==
--- NOTE | 2025-03-03 18:55 | ED ---
Extremity Problem HPI - General Source: patient Mode of arrival: ambulatory Limitations: no limitations <Panchito David - Last Filed: 03/03/25 18:55> - General Source: patient, RN notes reviewed, old records reviewed <Waqar Ramos - Last Filed: 03/03/25 20:28> - General Chief complaint: Extremity Problem,Nontraumatic Stated complaint: Left side shoulder pain Time Seen by Provider: 03/03/25 19:10 - History of Present Illness Initial comments: 69-year-old female with history of left frozen shoulder as well as chronic left rotator cuff issues presents emergency department with acute on chronic left shoulder pain. He has been seen outpatient for left shoulder issues. States she was doing stretches when she noticed reaggravation of this chronic pain that she has had. States she has gone a few weeks without it but it returned with movements. States the pain is primarily in her left shoulder radiating down towards her left pectoral muscle as well as down her left arm to her elbow. All present with movement. Has been ongoing for numerous days. Presents for further evaluation. No cardiac history. States this is typical pain for her. Presents for further evaluation.Patient has chronic pain in the shoulder and is seeing outpatient for chronic frozen shoulder in that shoulder. Just recently restarted exercises and is uncertain if this triggered the pain or not. (Waqar Rmaos) - Related Data Home Medications Medication Instructions Recorded Confirmed Albuterol Inhaler [Ventolin Hfa 1 - 2 puff INHALATION RT-Q6H PRN 01/28/16 11/10/17 Inhaler] Ergocalciferol (Vitamin D2) 50,000 unit PO Q30D 03/16/16 11/10/17 [Drisdol] Calcium Carbonate [Calcium] 600 mg PO BID 01/17/17 11/10/17 Atorvastatin [Lipitor] 20 mg PO DAILY 11/10/17 11/10/17 Ketorolac [Toradol] 10 mg PO Q6H PRN 11/10/17 11/10/17 Loratadine [Claritin] 10 mg PO DAILY PRN 11/10/17 11/10/17 busPIRone HCl [Buspar] 5 mg PO TID PRN 11/10/17 11/10/17 Previous Rx's Medication Instructions Recorded Ondansetron Odt [Zofran Odt] 4 mg PO Q8HR PRN #12 tab 11/10/17 Cyclobenzaprine [Flexeril] 10 mg PO TID #15 tab 09/16/19 Cephalexin [Keflex] 500 mg PO Q6HR 5 Days #20 cap 04/11/22 Cyclobenzaprine [Flexeril] 10 mg PO TID PRN #20 tab 08/03/22 Albuterol Nebulized [Ventolin 2.5 mg INHALATION Q4H PRN #25 each 10/30/24 Nebulized] Albuterol Sulfate [Proair 1 puff INHALATION TID #1 each 10/30/24 Digihaler] Allergies Allergy/AdvReac Type Severity Reaction Status Date / Time dimenhydrinate Allergy Rash/Hives Verified 03/03/25 18:41 [From Dramamine] latex Allergy Rash/Hives Verified 03/03/25 18:41 Penicillins Allergy Rash/Hives Verified 03/03/25 18:41 shellfish derived [Shellfish] Allergy Anaphylaxis Verified 03/03/25 18:41 erythromycin base AdvReac Nausea & Verified 03/03/25 18:41 [Erythromycin Base] Vomiting ibuprofen [From Motrin] AdvReac Nausea & Verified 03/03/25 18:41 Vomiting ZUCCHINI AdvReac Nausea & Uncoded 03/03/25 18:41 Vomiting & Diarrhea Review of Systems ROS Other: All systems not noted in ROS Statement are negative. <Panchito David - Last Filed: 03/03/25 18:55> ROS Other: All systems not noted in ROS Statement are negative. <Waqar Ramos - Last Filed: 03/03/25 20:28> ROS Statement: Those systems with pertinent positive or pertinent negative responses have been documented in the HPI. Review of Systems: CONST: Denies fever EYES: Denies blurry vision ENT: Denies nasal congestion C/V: Denies Chest pain RESP: Denies shortness of breath GI: Denies abdominal pain : Denies dysuria SKIN: Denies rash. MSK: Endorses left shoulder pain NEURO: Denies headache (Waqar Ramos) Past Medical History Past Medical History: COPD, Hyperlipidemia, Osteoarthritis (OA) Additional Past Medical History / Comment(s): back pain, DDD History of Any Multi-Drug Resistant Organisms: None Reported Past Surgical History: Hernia Repair, Hysterectomy, Orthopedic Surgery Additional Past Surgical History / Comment(s): Rt. arthroscopic knee surgery Past Anesthesia/Blood Transfusion Reactions: No Reported Reaction Past Psychological History: Anxiety Smoking Status: Current every day smoker Past Alcohol Use History: None Reported Past Drug Use History: None Reported - Past Family History Mother Family Medical History: Myocardial Infarction (AR) Father Family Medical History: Liver Disease, Pneumonia Sister(s) Family Medical History: Coronary Artery Disease (CAD), Diabetes Mellitus, Deep Vein Thrombosis (DVT), Hyperlipidemia, Hypertension <Panchito David - Last Filed: 03/03/25 18:55> General Exam Limitations: no limitations <Panchito David - Last Filed: 03/03/25 18:55> <Waqar Ramos - Last Filed: 03/03/25 20:28> - General Exam Comments Initial Comments: General: Appears in no acute distress. HEAD: Normal with no signs of head trauma. EYES: EOMI. ENT: Hearing grossly intact. RESPIRATORY: No respiratory distress. Clear breath sounds bilaterally. C/V: Regular rate and rhythm. S1 and S2 auscultated. Peripheral pulses 2+ and intact throughout. ABD: Abdomen is nondistended. EXT: No obvious deformity. Obvious pain with any movement of the left shoulder as well as direct palpation of the left shoulder. Seems chronic for the patient. He has reduced range of motion that is chronic. Pain seems to all be her chronic pain. SKIN: No rashes or lesions observed on exposed skin. NEURO: Alert and oriented. (Waqar Ramos) Course Vital Signs 03/03/25 18:38 Temperature 98.6 F Pulse Rate 83 Respiratory 20 Rate Blood Pressure 114/81 O2 Sat by Pulse 99 Oximetry Medical Decision Making - EKG Data -: EKG Interpreted by Me <Waqar Ramos - Last Filed: 03/03/25 20:28> - Medical Decision Making Was pt. sent in by a medical professional or institution (, PA, FURNITURE AND BEDDING INSPECTOR, urgent ca re, hospital, or half-way...) When possible be specific @ -No Did you speak to anyone other than the patient for history (EMS, parent, family, police, friend...)? What history was obtained from this source @ -No Did you review nursing and triage notes (agree or disagree)? Why? @ -I reviewed and agree with nursing and triage notes Were old charts reviewed (outside hosp., previous admission, EMS record, old EKG, old radiological studies, urgent care reports/EKG's, half-way records)? Report findings @ -. Today's EKG with EKG from October 2024 with no significant acute change. Differential Diagnosis (chest pain, altered mental status, abdominal pain women, abdominal pain men, vaginal bleeding, weakness, fever, dyspnea, syncope, headache, dizziness, GI bleed, back pain, seizure, CVA, palpatations, mental health, musculoskeletal)? @ -Shoulder sprain, chronic pain, shoulder fracture. This list is not all- inclusive. EKG interpreted by me (3pts min.). @ -As above X-rays interpreted by me (1pt min.). @ -Left shoulder x-ray reveals no obvious acute process. Arthritis present. CT interpreted by me (1pt min.). @ -None done U/S interpreted by me (1pt. min.). @ -None done What testing was considered but not performed or refused? (CT, X-rays, U/S, labs)? Why? @ -None What meds were considered but not given or refused? Why? @ -None Did you discuss the management of the patient with other professionals (professionals i.e. , PA, FURNITURE AND BEDDING INSPECTOR, lab, RT, psych nurse, hospice social worker, lead caster, teacher, risk control officer, correctional counselor/case manager)? Give summary @ -No Was smoking cessation discussed for >3mins.? @ -No Was critical care preformed (if so, how long)? @ -No Were there social determinants of health that impacted care today? How? (Homelessness, low income, unemployed, alcoholism, drug addiction, transportation, low edu. Level, literacy, decrease access to med. care, detention, rehab)? @ -No Was there de-escalation of care discussed even if they declined (Discuss DNR or withdrawal of care, Hospice)? DNR status @ -No What co-morbidities impacted this encounter? (DM, HTN, Smoking, COPD, CAD, Cancer, CVA, ARF, Chemo, Hep., AIDS, mental health diagnosis, sleep apnea, morbid obesity)? @ -None Was patient admitted / discharged? Hospital course, mention meds given and route, prescriptions, significant lab abnormalities, going to OR and other pertinent info. @ -Based on patient's presentation and physical exam, presents with what appears to be chronic rotator cuff injury to the left shoulder. Presents for evaluation. Is due to see her orthopedic surgeon later this week. Will obtain left shoulder x-ray as well as EKG. Patient was in agreement the plan. Vitals are within acceptable limits. Exam unremarkable other than for musculoskeletal pain. EKG shows no signs of acute ischemia with chronic findings. X-ray shows no obvious acute process. I updated the patient. She will be discharged home at this time. Recommend she follow-up with her orthopedic surgeon later this week and she was in agreement the plan. Strict return precautions discussed. I instructed the patient to follow up with their PCP in the next 1-3 days. I explained that the patient should return to the emergency department if they experience any worsening symptoms. Strict return precautions were discussed with the patient. The patient expressed understanding of these instructions. I ans wered all questions that the patient had. The patient was discharged home in good condition with their prescriptions and follow up information. Undiagnosed new problem with uncertain prognosis? @ -No Drug Therapy requiring intensive monitoring for toxicity (Heparin, Nitro, Insulin, Cardizem)? @ -No Were any procedures done? @ -No Diagnosis/symptom? @ -Left shoulder sprain Acute, or Chronic, or Acute on Chronic? @ -Acute on chronic Uncomplicated (without systemic symptoms) or Complicated (systemic symptoms)? @ -Uncomplicated Side effects of treatment? @ -No Exacerbation, Progression, or Severe Exacerbation? @ -No Poses a threat to life or bodily function? How? (Chest pain, [place], AR, pneumonia, PE, COPD, DKA, ARF, appy, cholecystitis, CVA, Diverticulitis, Homicidal, Suicidal, threat to staff... and all critical care pts) @ -Unlikely at this time (Waqar Ramos) - EKG Data EKG Comments: 12-lead Electrocardiogram Interpretation Note EKG was reviewed and interpreted by myself. 12-lead ECG performed at 1933 is interpreted by me as revealing sinus bradycardia at a rate of 58 beats per minute. Right axis deviation. MS interval is 122 ms, QRS duration is 118 ms, QTc is 399 ms. Chronic T wave inversions present and seen on prior EKG from October 2024.. There were no acute ST or T wave abnormalities to suggest myocardial ischemia or injury. R wave progression across the precordium was satisfactory. By my interpretation this EKG is non-diagnostic for acute ischemia. (Waqar Ramos) Disposition <Panchito David - Last Filed: 03/03/25 18:55> Is patient prescribed a controlled substance at d/c from ED?: No Time of Disposition: 20:26 <Waqar Ramos - Last Filed: 03/03/25 20:28> Clinical Impression: Sprain of left shoulder Disposition: HOME SELF-CARE Condition: Good Instructions (If sedation given, give patient instructions): Shoulder Sprain (ED) Referrals: Didi Dunn MD [Primary Care Provider] - 1-2 days
[2025-03-03] MEDS: KETOROLAC 15 MG/ML 1 ML VIAL IM STA (19:46)
--- NOTE | 2025-03-03 20:05 | XR ---
EXAMINATION TYPE: XR shoulder complete LT DATE OF EXAM: 03/03/2025 8:01 PM COMPARISON: None. CLINICAL INDICATION: Female, 69 years old with history of pain; PHH, pain TECHNIQUE: XR shoulder complete LT; examined in AP, internally rotated and scapular Y projections. FINDINGS: No evidence of acute osseous pathology, joint dislocation, or soft tissue swelling. The remaining po rtions of the visualized chest are unremarkable. Osseous structures appear demineralized. Moderate g lenohumeral and acromioclavicular degenerative arthritis. IMPRESSION: No acute osseous pathology. [facility], , 03/03/2025 8:02 PM
[2025-03-03 20:59] VITALS: BP 119/82; PULSE 75; RESP 18; TEMP 97.8
== END 2025-03-03 22:15 | disposition home or self-care (01) ==
LOC: EC 18:25
DX: S43.402A Unspecified sprain of left shoulder joint, initial encounter (principal); G89.29 Other chronic pain; F17.200 Nicotine dependence, unspecified, uncomplicated; Z88.0 Allergy status to penicillin; Z88.1 Allergy status to other antibiotic agents; Z88.6 Allergy status to analgesic agent; Z91.013 Allergy to seafood; Z91.040 Latex allergy status; Z91.018 Allergy to other foods; X58.XXXA Exposure to other specified factors, initial encounter
CPT/HCPCS: 99284; 96372; 93005; 73030; J1885